=== PATIENT | male | born 1950 | race Caucasian/White ===

== ENCOUNTER 2017-06-01 14:24 | Inpatient (IN) | payer OTHER, MEDICARE ==
[2017-06-01] MEDS ORDERED: PREDNISONE 20 MG TABLET PO ONE (14:50)
[2017-06-01] MEDS ORDERED: IPRATROPIUM/ALBUTEROL 0.5-2.5 MG/3 ML AMPUL NEB ONE (14:50)
[2017-06-01] MEDS ORDERED: ALBUTEROL SULFATE 0.083% NEB 2.5 MG/3 ML AMPUL NEB ONE ×2 (14:51→15:48)
--- NOTE | 2017-06-01 14:51 | ER Document Report ---
ED Respiratory Problem - General Chief Complaint: Breathing Difficulty Stated Complaint: SHORTNESS OF BREATH Time Seen by Provider: 06/01/17 14:33 Mode of Arrival: Medic Information source: Patient TRAVEL OUTSIDE OF THE [place] IN LAST 30 DAYS: No - Related Data Allergies/Adverse Reactions: Sulfa (Sulfonamide Antibiotics) Allergy (Verified 06/01/17 14:30) Past Medical History Renal/ Medical History: Denies: Hx Peritoneal Dialysis Physical Exam - Vital signs Vitals: Temp Pulse Resp BP Pulse Ox 98.6 F 102 H 16 165/79 H 85 L 06/01/17 14:30 06/01/17 14:30 06/01/17 14:30 06/01/17 14:30 06/01/17 14:30 Course - Vital Signs Vital signs: Temp Pulse Resp BP Pulse Ox 98.6 F 102 H 16 165/79 H 85 L 06/01/17 14:30 06/01/17 14:30 06/01/17 14:30 06/01/17 14:30 06/01/17 14:30
--- NOTE | 2017-06-01 14:51 | ER Document Report ---
ED Respiratory Problem - General Chief Complaint: Breathing Difficulty Stated Complaint: SHORTNESS OF BREATH Time Seen by Provider: 06/01/17 14:33 Mode of Arrival: Medic Information source: Patient Notes: 67-year-old smoker male with COPD sent by urgent care because of wheezing and low pulse ox. He started wheezing several days ago. Visiting [place] from [place] for a few more months. TRAVEL OUTSIDE OF THE [place] IN LAST 30 DAYS: No - Related Data Allergies/Adverse Reactions: Sulfa (Sulfonamide Antibiotics) Allergy (Verified 06/01/17 14:30) Past Medical History - General Information source: Patient - Social History Smoking Status: Current Every Day Smoker Lives with: Family Family History: Reviewed & Not Pertinent Pulmonary Medical History: Reports: Hx COPD Other: obese Renal/ Medical History: Denies: Hx Peritoneal Dialysis Other: peripheral vascular disease due to [place]. Surgical Hx: Negative Review of Systems - Review of Systems Constitutional: No symptoms reported EENT: No symptoms reported Cardiovascular: No symptoms reported Respiratory: See HPI Gastrointestinal: No symptoms reported Genitourinary: No symptoms reported Male Genitourinary: No symptoms reported Musculoskeletal: No symptoms reported Skin: No symptoms reported Hematologic/Lymphatic: No symptoms reported Neurological/Psychological: No symptoms reported Physical Exam - Vital signs Vitals: Temp Pulse Resp BP Pulse Ox 98.6 F 102 H 16 165/79 H 85 L 06/01/17 14:30 06/01/17 14:30 06/01/17 14:30 06/01/17 14:30 06/01/17 14:30 Interpretation: Normal, Tachypneic Notes: oxygen 2 lpm nh - General General appearance: Appears well, Alert - HEENT Head: Normocephalic, Atraumatic Eyes: Normal Conjunctiva: Normal Pupils: PERRL Neck: Supple. No: Lymphadenopathy - Respiratory Respiratory status: No respiratory distress Chest status: Nontender Breath sounds: Wheezing - expiratory bilatera Chest palpation: Normal - Cardiovascular Rhythm: Regular Heart sounds: Normal auscultation Murmur: No - Abdominal Inspection: Normal Distension: No distension Bowel sounds: Normal Tenderness: Nontender Organomegaly: No organomegaly - Back Back: Normal, Nontender. No: CVA tenderness - Extremities General upper extremity: Normal inspection, Nontender, Normal color, Normal ROM , Normal temperature General lower extremity: Normal inspection, Nontender, Normal color, Normal ROM , Normal temperature, Normal weight bearing. No: Abdiel's sign - Neurological Neuro grossly intact: Yes Cognition: Normal Orientation: AAOx4 Jak Coma Scale Eye Opening: Spontaneous [place] Coma Scale Verbal: Oriented Jak Coma Scale Motor: Obeys Commands Jak Coma Scale Total: 15 Speech: Normal Motor strength normal: LUE, RUE, LLE, RLE Sensory: Normal - Psychological Associated symptoms: Normal affect, Normal mood - Skin Skin Temperature: Warm Skin Moisture: Dry Skin Color: Normal Skin irregularity: negative: Rash Course - Re-evaluation Re-evalutation: 06/01/17 15:42 increased expiratory wheeze after the alb. 5 mg. pulse ox 93% 06/01/17 16:[address] dong, get CTA 06/01/17 17:44 CTA is negative for pulmonary embolism there is a 5 mm right lung nodule 06/01/17 17:50 Eating dinner, continues to have expiratory wheezing bilaterally. I took the oxygen off to see what his sats do while we ambulate him after dinner. Sinus tachycardia on the EKG. 06/01/17 18:11 dr reyes will admit, pulse ox drops to 79-80% when ambulating without oxygen. CO2 on abg 50. pt willing to be admitted. 06/01/17 18:12 - Vital Signs Vital signs: Temp Pulse Resp BP Pulse Ox 98.6 F 102 H 22 H 148/64 H 93 06/01/17 14:30 06/01/17 14:30 06/01/17 16:38 06/01/17 17:05 06/01/17 17:05 - Laboratory Result Diagrams: 06/01/17 15:04 06/01/17 15:04 Laboratory results interpreted by me: 06/01/17 06/01/17 06/01/17 15:04 15:04 15:04 RDW 15.2 H Seg Neutrophils % 83.3 H Lymphocytes % 7.2 L Absolute Neutrophils 8.6 H Carbonic Acid ABG pCO2 ABG pO2 ABG HCO3 ABG Total CO2 ABG O2 Saturation VBG pCO2 66.5 H* VBG HCO3 34.0 H Carbon Dioxide 32 H Glucose 114 H Alkaline Phosphatase 153 H Urine Protein 06/01/17 06/01/17 16:32 17:30 RDW Seg Neutrophils % Lymphocytes % Absolute Neutrophils Carbonic Acid 1.51 H ABG pCO2 50.1 H ABG pO2 63.7 L ABG HCO3 28.5 H ABG Total CO2 30.0 H ABG O2 Saturation 91.6 L VBG pCO2 VBG HCO3 Carbon Dioxide Glucose Alkaline Phosphatase Urine Protein 100 H Discharge - Discharge Clinical Impression: 5mm pulmonary nodule, COPD exacerbation Condition: Fair Disposition: ADMITTED INPATIENT Admitting Provider: Hospitalist Unit Admitted: Telemetry
[2017-06-01] MEDS ORDERED: PREDNISONE 20 MG TABLET ONE (15:07)
[2017-06-01 15:25] LABS: ABSOLUTE BASOPHILS # (AUTO) 0.1 10^3/uL (0.0-0.2); ABSOLUTE LYMPHOCYTES (AUTO) 0.7 10^3/uL (0.5-4.7); ABSOLUTE MONOCYTES (AUTO) 0.9 10^3/uL (0.1-1.4); ABSOLUTE NEUT (AUTO) 8.6 10^3/uL (1.7-8.2); BASOPHILS % (AUTO) 0.7 % (0-2); EOSINOPHILS % (AUTO) 0.3 % (0-6); HEMATOCRIT 48.3 % (37.9-51.0); HEMOGLOBIN 16.5 g/dL (13.5-17.0); HGB HCT DIFFERENCE 1.2; LYMPHOCYTES % (AUTO) 7.2 % (13-45); MEAN CORPUSCULAR HGB CONC 34.1 g/dL (32.0-36.0); MEAN CORPUSCULAR VOLUME 88 fl (80-97); MONOCYTES % (AUTO) 8.5 % (3-13); RED BLOOD COUNT 5.49 10^6/uL (4.35-5.55); RED CELL DISTRIBUTION WIDTH 15.2 % (11.5-14.0); SEGMENTED NEUTROPHILS % (AUTO) 83.3 % (42-78); WHITE BLOOD COUNT 10.3 10^3/uL (4.0-10.5)
--- NOTE | 2017-06-01 15:26 | RADIOLOGY REPORT (SQ) ---
EXAM DESCRIPTION: CHEST SINGLE VIEW COMPLETED DATE/TIME: 06/01/2017 2:57 pm REASON FOR STUDY: hypoxemia COMPARISON: None. EXAM PARAMETERS: NUMBER OF VIEWS: One view. TECHNIQUE: Single frontal radiographic view of the chest acquired. RADIATION DOSE: NA LIMITATIONS: None. FINDINGS: LUNGS AND PLEURA: No opacities, masses or pneumothorax. No pleural effusion. MEDIASTINUM AND HILAR STRUCTURES: No masses. Contour normal. HEART AND VASCULAR STRUCTURES: Heart normal in size. Normal vasculature. BONES: No acute findings. HARDWARE: None in the chest. OTHER: No other significant finding. IMPRESSION: NO ACUTE RADIOGRAPHIC FINDING IN THE CHEST. TECHNICAL DOCUMENTATION: JOB ID: [id number]
[2017-06-01 15:32] LABS: VENOUS BLOOD BASE EXCESS 5.2 mmol/L; VENOUS BLOOD PH 7.33 (7.30-7.42)
[2017-06-01 15:37] LABS: VENOUS BLOOD PCO2 66.5 mmHg (35-63)
[2017-06-01] MEDS ORDERED: LEVOFLOXACIN 750 MG TABLET PO ONE (15:50)
[2017-06-01 15:55] LABS: ALANINE AMINOTRANSFERASE 40 U/L (21-72); ALBUMIN 4.4 g/dL (3.5-5.0); ALKALINE PHOSPHATASE 153 U/L (38-126); ANION GAP 11 (5-19); ASPARTATE AMINO TRANSFERASE 29 U/L (17-59); BILIRUBIN,DIRECT 0.4 mg/dL (0.0-0.4); BILIRUBIN,TOTAL 0.6 mg/dL (0.2-1.3); BLOOD UREA NITROGEN 12 mg/dL (7-20); CALCIUM 9.4 mg/dL (8.4-10.2); CARBON DIOXIDE 32 mmol/L (22-30); CHLORIDE 99 mmol/L (98-107); CREATINE KINASE 137 U/L (55-170); CREATININE RESULT 0.74 mg/dL (0.52-1.25); GLUCOSE 114 mg/dL (75-110); POTASSIUM 4.3 mmol/L (3.6-5.0); SODIUM 141.9 mmol/L (137-145)
[2017-06-01] MEDS: MAGNESIUM SULFATE/D5W 1 GM/100 ML RTUPB IV SCH ×2 (16:04→16:25)
[2017-06-01 16:06] LABS: CREATINE KINASE MB 2.72 ng/mL (<4.55)
[2017-06-01 16:07] LABS: TROPONIN I < 0.012 ng/mL
[2017-06-01 17:06] LABS: APPEARANCE,URINE SLIGHTLY-CLOUDY; BILIRUBIN,URINE NEGATIVE (NEGATIVE); GLUCOSE, URINE NEGATIVE (NEGATIVE); KETONES,URINE NEGATIVE (NEGATIVE); LEUKOCYTE ESTERASE,URINE NEGATIVE (NEGATIVE); NITRITE,URINE NEGATIVE (NEGATIVE); PROTEIN,URINE 100 mg/dL (NEGATIVE); URINE SPECIFIC GRAVITY 1.019; UROBILINOGEN,URINE NEGATIVE mg/dL (<2.0)
--- NOTE | 2017-06-01 17:35 | RADIOLOGY REPORT (SQ) ---
EXAM DESCRIPTION: CTA CHEST COMPLETED DATE/TIME: 06/01/2017 5:10 pm REASON FOR STUDY: sob, wheeze, if the creatitine is OK COMPARISON: Chest x-ray dated 06/01/2017 TECHNIQUE: CT scan of the chest performed using helical scanning technique with dynamic intravenous contrast injection. Images reviewed with lung, soft tissue and bone windows. Reconstructed coronal and sagittal MPR images reviewed. Additional 3 dimensional post-processing performed to develop Maximal Intensity Projection images (NH P). All images stored on PACS. All CT scanners at this facility use dose modulation, iterative reconstruction, and/or weight based d osing when appropriate to reduce radiation dose to as low as reasonably achievable (ALARA). [facility]: Dose Right [facility]: CareDose [facility]: Dose Right [facility]: Teradose 4D [facility]: eMagin CONTRAST TYPE AND DOSE: contrast/concentration: Isovue 370.00 mg/ml; Total Contrast Delivered: 75.0 ml; Total Saline Delivered: 50.0 ml Contrast bolus optimized for the pulmonary arteries. Not diagnostic for the aorta. RENAL FUNCTION: Creatinine 0.7 RADIATION DOSE: Up-to-date CT equipment and radiation dose reduction techniques were employed. CTDIv ol: 7.5 - 15.6 mGy. DLP: 683 mGy-cm. . LIMITATIONS: None. FINDINGS: LUNGS AND PLEURA: No masses, infiltrates, pneumothorax. No pleural effusions, calcificati ons. A 5 mm in diameter pulmonary nodule is identified in the right mid lung field best seen on imag e number 28 with followup recommendations as noted below. AORTA AND GREAT VESSELS: No aneurysm. Contrast bolus not optimized for the aorta. HEART: No pericardial effusion. No significant coronary artery calcifications. PULMONARY ARTERIES: No emboli visualized in the main pulmonary arteries or the segmental branches. HILAR AND MEDIASTINAL STRUCTURES: No identified masses or abnormal nodes. HARDWARE: None in the chest. UPPER ABDOMEN: No significant findings. Limited exam. THYROID AND OTHER SOFT TISSUES: No masses. No adenopathy. BONES: No acute or significant finding. 3D MIPS: Confirm above findings. OTHER: No other significant finding. IMPRESSION: No evidence for pulmonary embolic disease. No acute consolidations or pleural effusions are identified. 5 mm pulmonary nodule on the right with followup recommendations as noted below. O ther findings as noted above COMMENT: <6mm single solid nodule: LOW RISK: no routine followup. HIGH RISK: optional CT 12 mo. Quality ID # [id number]: Final reports with documentation of one or more dose reduction techniques (e.g., Au tomated exposure control, adjustment of the mA and/or kV according to patient size, use of iterative reconstruction technique) TECHNICAL DOCUMENTATION: JOB ID: [id number] [employer]- All Rights Reserved
[2017-06-01 17:47] LABS: ARTERIAL BLOOD BASE EXCESS 2.2 mmol/L; ARTERIAL BLOOD O2 SATURATION 91.6 % (94-98)
[2017-06-01] MEDS ORDERED: LEVALBUTEROL HCL NEB 0.63 MG/3 ML AMPUL NEB ONE (18:06)
[2017-06-01] MEDS ORDERED: ALBUTEROL SULFATE 0.083% NEB 2.5 MG/3 ML AMPUL NEB PRN (18:35)
[2017-06-01] MEDS ORDERED: ONDANSETRON HCL INJ/PF 4 MG/2 ML SDV IV PRN (18:35)
[2017-06-01] MEDS ORDERED: ACETAMINOPHEN 325 MG TABLET PO PRN (18:35)
--- NOTE | 2017-06-01 18:53 | PDOC H&P ---
History of Present Illness Admission Date/PCP: 06/01/17 18:32 Patient complains of: Shortness of breath History of Present Illness: JT CHATMAN is a 67 year old male, with history of COPD started to develop sinus congestion and sore throat postnasal drip yesterday subsequently followed by low-grade fever coughing with yellow phlegm shortness of breath and wheezing. Denies any chest pain. No PND orthopnea. Patient was taking his medications with partial relief of symptoms. The symptoms get worse chest congestion got worse therefore he presented to the hospital. He was given several doses of nebulizers as well as magnesium and steroids with some relief of symptoms. He was then referred for admission. On ambulation the patient desaturates according to the emergency room physician. There is chronic lower extremity edema but nothing increasing. Past Medical History Past Medical History: Medication reconciliation pending verification from the patient's pharmacist. Cardiac Medical History: Reports: Hypertension Pulmonary Medical History: Reports: Chronic Obstructive Pulmonary Disease (COPD) , Other - Pulmonary nodule Psychiatric Medical History: Reports: Post Traumatic Stress Disorder Past Surgical History Past Surgical History: Reports: None Social History Information Source: Patient Lives with: Family Smoking Status: Never Smoker Frequency of Alcohol Use: Rare Hx Recreational Drug Use: No Drugs: None Family History Family History: None, Reviewed & Not Pertinent Parental Family History Reviewed: Yes Children Family History Reviewed: Yes Sibling(s) Family History Reviewed.: Yes Medication/Allergy Allergies/Adverse Reactions: Sulfa (Sulfonamide Antibiotics) Allergy (Verified 06/01/17 14:30) Review of Systems Constitutional: PRESENT: fever(s). ABSENT: chills, headache(s), night sweats, weight gain, weight loss Eyes: ABSENT: visual disturbances Ears: ABSENT: hearing changes Nose, Mouth, and Throat: PRESENT: sore throat. ABSENT: mouth pain, vertigo Cardiovascular: PRESENT: edema - Chronic. ABSENT: chest pain, dyspnea on exertion, orthropnea, palpitations Respiratory: PRESENT: cough, dyspnea, sputum - Yellowish. ABSENT: hemoptysis Gastrointestinal: ABSENT: abdominal pain, bloating, constipation, diarrhea, hematemesis, hematochezia, melena, nausea, vomiting Genitourinary: ABSENT: dysuria, hematuria Musculoskeletal: ABSENT: joint swelling Integumentary: ABSENT: rash, wounds Neurological: ABSENT: abnormal gait, abnormal speech, confusion, dizziness, focal weakness, syncope Psychiatric: ABSENT: anxiety, depression, homidical ideation, suicidal ideation Endocrine: ABSENT: cold intolerance, heat intolerance, polydipsia, polyuria Hematologic/Lymphatic: ABSENT: easy bleeding, easy bruising Physical Exam Vital Signs: Temp Pulse Resp BP Pulse Ox 98.6 F 102 H 22 H 148/64 H 93 06/01/17 14:30 06/01/17 14:30 06/01/17 16:38 06/01/17 17:05 06/01/17 17:05 General appearance: PRESENT: no acute distress, morbidly obese Head exam: PRESENT: atraumatic, normocephalic Eye exam: PRESENT: conjunctiva pink, EOMI, PERRLA. ABSENT: scleral icterus Ear exam: PRESENT: normal external ear exam. ABSENT: drainage Mouth exam: PRESENT: moist, neck supple, tongue midline Throat exam: ABSENT: post pharyngeal erythema, tonsillar erythema Neck exam: ABSENT: carotid bruit, JVD, lymphadenopathy, thyromegaly Respiratory exam: PRESENT: rhonchi - Scattered bilateral, wheezes - Scattered bilateral mild. ABSENT: rales Cardiovascular exam: PRESENT: RRR, +S1, +S2. ABSENT: diastolic murmur, rubs, systolic murmur Pulses: PRESENT: normal dorsalis pedis pul Vascular exam: PRESENT: normal capillary refill GI/Abdominal exam: PRESENT: normal bowel sounds, soft. ABSENT: distended - Obese, guarding, mass, organolmegaly, rebound, tenderness Rectal exam: PRESENT: deferred Extremities exam: PRESENT: full ROM, +1 edema. ABSENT: calf tenderness, clubbing Neurological exam: PRESENT: alert, awake, oriented to person, oriented to place , oriented to time, oriented to situation Psychiatric exam: PRESENT: appropriate affect, normal mood. ABSENT: homicidal ideation, suicidal ideation Skin exam: PRESENT: dry, intact, warm. ABSENT: cyanosis, rash Results Impressions: Chest X-Ray 06/01/17 14:33 IMPRESSION: NO ACUTE RADIOGRAPHIC FINDING IN THE CHEST. Chest/Abdomen CTA 06/01/17 15:52 IMPRESSION: No evidence for pulmonary embolic disease. No acute consolidations or pleural effusions are identified. 5 mm pulmonary nodule on the right with followup recommendations as noted below. Other findings as noted above Assessment & Plan - Diagnosis (1) COPD exacerbation Is this a current diagnosis for this admission?: Yes (2) Abnormal urinalysis Is this a current diagnosis for this admission?: Yes (3) Pulmonary nodule Is this a current diagnosis for this admission?: Yes (4) Essential hypertension Is this a current diagnosis for this admission?: Yes (5) PTSD (post-traumatic stress disorder) Is this a current diagnosis for this admission?: Yes - Time Time Spent: 50 to 70 Minutes - Inpatient Certification Based on my medical assessment, after consideration of the patient's comorbidities, presenting symptoms, or acuity I expect that the services needed warrant INPATIENT care.: Yes Medical Necessity: Need Close Monitoring Due to Risk of Patient Decompensation, Need For Continuous Telemetry Monitoring, Need for Nebulizer Therapy and Monitoring of Response, Risk of Complication if Not Cared For in Hospital Post Hospital Care: D/C English Professor Documentation - Plan Summary Plan Summary: The patient will be admitted to telemetry. We will start the patient on intravenous steroids as well as [id number] nebulizers. His urine was abnormal we will therefore culture it and begin the patient on antibiotics. DVT prophylaxis with Lovenox will be placed. Supplemental oxygen will be given. We will obtain his medications from his pharmacist. Patient reports he takes felodipine Zoloft Seroquel aspirin Singulair and ProAir air. I will put patient on Norvasc for now as well as low doses of Seroquel until we can much his home medication. He stated he is in 100 mg of Zoloft we will therefore continue. Patient reports that he has long history of pulmonary nodule and his primary care physician in [facility] takes care of it. Further testing depends on the initial evaluation and response to treatment as outlined above.
[2017-06-01] MEDS ORDERED: ENOXAPARIN SODIUM INJ 40 MG/0.4 ML DISP.SYRIN SUBCUT ONE (20:00)
[2017-06-01] MEDS: IPRATROPIUM/ALBUTEROL 0.5-2.5 MG/3 ML AMPUL NEB SCH ×2 (20:55→23:47)
--- NOTE | 2017-06-01 21:02 | EKG REPORT ---
SEVERITY:- ABNORMAL ECG - SINUS TACHYCARDIA PROBABLE INFERIOR INFARCT, OLD ANTERIOR INFARCT, AGE INDETERMINATE BORDERLINE PROLONGED QT INTERVAL : Confirmed by: Eulalia Orourke MD 01-Jun-2017 21:01:40
[2017-06-01] MEDS: NORMAL SALINE 1000 ML 1,000 ML IV PRN (22:04)
[2017-06-01] MEDS: QUETIAPINE FUMARATE 100 MG TABLET PO SCH (22:04)
[2017-06-01] MEDS: METHYLPREDNISOLONE INJ 125 MG/2 ML SDV IV SCH (22:04)
[2017-06-02] MEDS: IPRATROPIUM/ALBUTEROL 0.5-2.5 MG/3 ML AMPUL NEB SCH ×6 (03:45→23:51)
[2017-06-02 06:03] LABS: ANION GAP 10 (5-19); BLOOD UREA NITROGEN 16 mg/dL (7-20); CALCIUM 9.2 mg/dL (8.4-10.2); CARBON DIOXIDE 28 mmol/L (22-30); CHLORIDE 102 mmol/L (98-107); CREATININE RESULT 0.68 mg/dL (0.52-1.25); GLUCOSE 167 mg/dL (75-110); POTASSIUM 4.5 mmol/L (3.6-5.0); SODIUM 139.5 mmol/L (137-145)
[2017-06-02] MEDS: METHYLPREDNISOLONE INJ 125 MG/2 ML SDV IV SCH ×3 (06:09→21:24)
[2017-06-02] MEDS: LANSOPRAZOLE 30 MG TAB.RAP.DR PO SCH ×2 (06:09→17:08)
[2017-06-02] MEDS: LEVOFLOXACIN 750 MG TABLET PO SCH (09:41)
[2017-06-02] MEDS: DOCUSATE SODIUM 100 MG CAPSULE PO SCH ×2 (09:41→17:09)
[2017-06-02] MEDS: SERTRALINE HCL 50 MG TABLET PO SCH (09:42)
[2017-06-02] MEDS: ASPIRIN 81 MG TABLET, CHEWABLE PO SCH (09:42)
[2017-06-02] MEDS: ENOXAPARIN SODIUM INJ 40 MG/0.4 ML DISP.SYRIN SUBCUT SCH (09:44)
[2017-06-02] MEDS: AMLODIPINE BESYLATE 5 MG TABLET PO SCH (14:49)
--- NOTE | 2017-06-02 15:24 | PDOC PROGRESS REPORT ---
Subjective Progress Note for:: 06/02/17 Subjective:: Patient reports that his breathing is doing better today. Physical Exam Vital Signs: Temp Pulse Resp BP Pulse Ox 97.3 F 79 24 H 163/86 H 93 06/02/17 11:47 06/02/17 14:00 06/02/17 11:56 06/02/17 11:47 06/02/17 11:56 Pulse Oximeter Continuous Start: 06/01/17 21: 02 Freq: RTQ4 Status: Active Document 06/02/17 11:56 TPO (Rec: 06/02/17 12:06 TPO [email or web address]) Pulse Oximetry Assessment Oxygen Saturation (92-100) 93 Oxygen Flow Rate (L/min) 2 Oxygen Delivery Method Nasal Cannula Fraction of Inspired Oxygen (FIO2) 28 Equipment Usage Equipment in Use Continuous SpO2 Machine # [id number] Intake & Output 06/01/17 06/02/17 06/03/17 06:59 06:59 06:59 Intake Total 1760 360 Output Total 300 Balance 1460 360 Weight 118.7 kg General appearance: PRESENT: no acute distress Eye exam: PRESENT: conjunctiva pink. ABSENT: scleral icterus Mouth exam: PRESENT: moist, tongue midline Neck exam: ABSENT: JVD Respiratory exam: PRESENT: wheezes. ABSENT: rales, rhonchi Cardiovascular exam: PRESENT: RRR. ABSENT: diastolic murmur, rubs, systolic murmur GI/Abdominal exam: PRESENT: normal bowel sounds, soft. ABSENT: distended, guarding, mass, organolmegaly, rebound, tenderness Extremities exam: ABSENT: calf tenderness, clubbing, pedal edema Neurological exam: PRESENT: alert, awake, oriented to person, oriented to place , oriented to time, oriented to situation, CN II-XII grossly intact. ABSENT: motor sensory deficit Psychiatric exam: PRESENT: appropriate affect Skin exam: PRESENT: dry, intact, warm. ABSENT: cyanosis, rash Results Laboratory Results: 06/02/17 05:01 06/02/17 05:01 Sodium 139.5 Potassium 4.5 Chloride 102 Carbon Dioxide 28 Anion Gap 10 BUN 16 Creatinine 0.68 Est GFR ( Amer) > 60 Est GFR (Non-Af Amer) > 60 Glucose 167 H Calcium 9.2 Impressions: Chest X-Ray 06/01/17 14:33 IMPRESSION: NO ACUTE RADIOGRAPHIC FINDING IN THE CHEST. Chest/Abdomen CTA 06/01/17 15:52 IMPRESSION: No evidence for pulmonary embolic disease. No acute consolidations or pleural effusions are identified. 5 mm pulmonary nodule on the right with followup recommendations as noted below. Other findings as noted above Assessment & Plan - Diagnosis (1) COPD exacerbation Is this a current diagnosis for this admission?: Yes Plan: Patient is improved with IV steroids, nebulizers, antibiotics. (2) Abnormal urinalysis Is this a current diagnosis for this admission?: Yes Plan: Continue with Levaquin. (3) Essential hypertension Is this a current diagnosis for this admission?: Yes (4) PTSD (post-traumatic stress disorder) Is this a current diagnosis for this admission?: Yes (5) Pulmonary nodule Is this a current diagnosis for this admission?: Yes Plan: This has been long-standing and the patient reports is been followed by his primary care doctor. - Time Time Spent with patient: 25-34 minutes - Inpatient Certification Medical Necessity: Need Close Monitoring Due to Risk of Patient Decompensation, Need for IV Antibiotics
[2017-06-02] MEDS: QUETIAPINE FUMARATE 100 MG TABLET PO SCH (21:24)
[2017-06-03] MEDS: IPRATROPIUM/ALBUTEROL 0.5-2.5 MG/3 ML AMPUL NEB SCH ×5 (04:07→19:55)
[2017-06-03 05:10] LABS: HEMATOCRIT 46.9 % (37.9-51.0); HEMOGLOBIN 15.6 g/dL (13.5-17.0); HGB HCT DIFFERENCE -0.1; MEAN CORPUSCULAR HEMOGLOBIN 29.6 pg (27.0-33.4); MEAN CORPUSCULAR HGB CONC 33.3 g/dL (32.0-36.0); MEAN CORPUSCULAR VOLUME 89 fl (80-97); RED BLOOD COUNT 5.28 10^6/uL (4.35-5.55); RED CELL DISTRIBUTION WIDTH 15.8 % (11.5-14.0)
[2017-06-03 05:16] LABS: ANION GAP 7 (5-19); BLOOD UREA NITROGEN 18 mg/dL (7-20); CARBON DIOXIDE 29 mmol/L (22-30); CHLORIDE 106 mmol/L (98-107); CREATININE RESULT 0.67 mg/dL (0.52-1.25); GLUCOSE 156 mg/dL (75-110); SODIUM 141.9 mmol/L (137-145)
[2017-06-03 05:58] LABS: ANISOCYTOSIS SLIGHT; BAND NEUTROPHILS % (MANUAL) 2 % (3-5); BASOPHILS % (MANUAL) 0 % (0-2); EOSINOPHILS % (MANUAL) 0 % (0-6); LYMPHOCYTES % (MANUAL) 10 % (13-45); OVALOCYTES SLIGHT; POIKILOCYTOSIS SLIGHT; TOTAL CELLS COUNTED 100; TOXIC GRANULATION 1+
[2017-06-03] MEDS: LANSOPRAZOLE 30 MG TAB.RAP.DR PO SCH ×2 (05:58→17:43)
[2017-06-03] MEDS: METHYLPREDNISOLONE INJ 125 MG/2 ML SDV IV SCH ×3 (05:58→21:22)
[2017-06-03] MEDS: NORMAL SALINE 1000 ML 1,000 ML IV PRN ×2 (05:58→17:47)
[2017-06-03] MEDS: AMLODIPINE BESYLATE 5 MG TABLET PO SCH (09:02)
[2017-06-03] MEDS: DOCUSATE SODIUM 100 MG CAPSULE PO SCH ×2 (09:07→17:43)
[2017-06-03] MEDS: SERTRALINE HCL 50 MG TABLET PO SCH (09:07)
[2017-06-03] MEDS: ASPIRIN 81 MG TABLET, CHEWABLE PO SCH (09:07)
[2017-06-03] MEDS: LEVOFLOXACIN 750 MG TABLET PO SCH (09:09)
[2017-06-03] MEDS: ENOXAPARIN SODIUM INJ 40 MG/0.4 ML DISP.SYRIN SUBCUT SCH (09:09)
--- NOTE | 2017-06-03 11:13 | PDOC PROGRESS REPORT ---
Subjective Progress Note for:: 06/03/17 Subjective:: Denies any complaints Physical Exam Vital Signs: Temp Pulse Resp BP Pulse Ox 97.4 F 74 20 146/76 H 95 06/03/17 07:34 06/03/17 08:12 06/03/17 08:12 06/03/17 07:34 06/03/17 08:12 Pulse Oximeter Continuous Start: 06/01/17 21: 02 Freq: RTQ4 Status: Active Document 06/03/17 08:12 TPO (Rec: 06/03/17 08:33 TPO [email or web address]) Pulse Oximetry Assessment Oxygen Saturation (92-100) 95 Oxygen Delivery Method Room Air Fraction of Inspired Oxygen (FIO2) 21 Equipment Usage Equipment in Use Continuous SpO2 Machine # [id number] Intake & Output 06/02/17 06/03/17 06/04/17 06:59 06:59 06:59 Intake Total 1760 2688 Output Total 300 Balance 1460 2688 Weight 118.7 kg 118.7 kg General appearance: PRESENT: no acute distress Eye exam: PRESENT: conjunctiva pink. ABSENT: scleral icterus Mouth exam: PRESENT: moist, tongue midline Neck exam: ABSENT: JVD Respiratory exam: PRESENT: wheezes. ABSENT: rales, rhonchi Cardiovascular exam: PRESENT: RRR. ABSENT: diastolic murmur, rubs, systolic murmur GI/Abdominal exam: PRESENT: normal bowel sounds, soft. ABSENT: distended, guarding, mass, organolmegaly, rebound, tenderness Extremities exam: ABSENT: calf tenderness, clubbing, pedal edema Psychiatric exam: PRESENT: appropriate affect Skin exam: PRESENT: dry, intact, warm. ABSENT: cyanosis, rash Results Laboratory Results: 06/03/17 04:48 06/03/17 04:48 06/03/17 06/03/17 04:48 04:48 WBC 21.0 H D RBC 5.28 Hgb 15.6 Hct 46.9 MCV 89 MCH 29.6 MCHC 33.3 RDW 15.8 H Plt Count 188 Seg Neutrophils % Not Reportable Lymphocytes % Not Reportable Monocytes % Not Reportable Eosinophils % Not Reportable Basophils % Not Reportable Absolute Neutrophils Not Reportable Absolute Lymphocytes Not Reportable Absolute Monocytes Not Reportable Absolute Eosinophils Not Reportable Absolute Basophils Not Reportable Sodium 141.9 Potassium 5.0 Chloride 106 Carbon Dioxide 29 Anion Gap 7 BUN 18 Creatinine 0.67 Est GFR ( Amer) > 60 Est GFR (Non-Af Amer) > 60 Glucose 156 H Calcium 9.0 Impressions: Chest X-Ray 06/01/17 14:33 IMPRESSION: NO ACUTE RADIOGRAPHIC FINDING IN THE CHEST. Chest/Abdomen CTA 06/01/17 15:52 IMPRESSION: No evidence for pulmonary embolic disease. No acute consolidations or pleural effusions are identified. 5 mm pulmonary nodule on the right with followup recommendations as noted below. Other findings as noted above Assessment & Plan - Diagnosis (1) COPD exacerbation Is this a current diagnosis for this admission?: Yes Plan: Patient is improved with IV steroids, nebulizers, antibiotics. (2) Abnormal urinalysis Is this a current diagnosis for this admission?: Yes Plan: Continue with Levaquin. (3) Essential hypertension Is this a current diagnosis for this admission?: Yes Plan: Patient normally takes felodipine at home. We do not carry that here. He reports he is unable to take amlodipine (4) PTSD (post-traumatic stress disorder) Is this a current diagnosis for this admission?: Yes (5) Pulmonary nodule Is this a current diagnosis for this admission?: Yes Plan: This has been long-standing and the patient reports is been followed by his primary care doctor. - Time Time Spent with patient: 25-34 minutes - Inpatient Certification Medical Necessity: Need Close Monitoring Due to Risk of Patient Decompensation
[2017-06-03] MEDS: QUETIAPINE FUMARATE 100 MG TABLET PO SCH (21:22)
[2017-06-04] MEDS: IPRATROPIUM/ALBUTEROL 0.5-2.5 MG/3 ML AMPUL NEB SCH ×6 (00:05→19:56)
[2017-06-04 05:07] LABS: MEAN CORPUSCULAR VOLUME 89 fl (80-97)
[2017-06-04 05:15] LABS: ANION GAP 9 (5-19); BLOOD UREA NITROGEN 19 mg/dL (7-20); CALCIUM 8.9 mg/dL (8.4-10.2); CARBON DIOXIDE 28 mmol/L (22-30); CHLORIDE 105 mmol/L (98-107); CREATININE RESULT 0.69 mg/dL (0.52-1.25); GLUCOSE 144 mg/dL (75-110); POTASSIUM 4.5 mmol/L (3.6-5.0); SODIUM 142.2 mmol/L (137-145)
[2017-06-04 05:20] LABS: HEMATOCRIT 45.4 % (37.9-51.0); HEMOGLOBIN 15.1 g/dL (13.5-17.0); HGB HCT DIFFERENCE -0.1; MEAN CORPUSCULAR HEMOGLOBIN 29.6 pg (27.0-33.4); MEAN CORPUSCULAR HGB CONC 33.2 g/dL (32.0-36.0); RED BLOOD COUNT 5.09 10^6/uL (4.35-5.55); RED CELL DISTRIBUTION WIDTH 15.9 % (11.5-14.0); WHITE BLOOD COUNT 20.7 10^3/uL (4.0-10.5)
[2017-06-04 05:26] LABS: ANISOCYTOSIS 1+; BASOPHILS % (MANUAL) 0 % (0-2); EOSINOPHILS % (MANUAL) 0 % (0-6); LYMPHOCYTES % (MANUAL) 2 % (13-45); TOTAL CELLS COUNTED 100; TOXIC GRANULATION 1+; TOXIC VACUOLATION PRESENT
[2017-06-04] MEDS: METHYLPREDNISOLONE INJ 125 MG/2 ML SDV IV SCH ×3 (05:44→21:37)
[2017-06-04] MEDS: LANSOPRAZOLE 30 MG TAB.RAP.DR PO SCH ×2 (05:44→18:26)
[2017-06-04] MEDS: NORMAL SALINE 1000 ML 1,000 ML IV PRN ×2 (05:45→21:37)
[2017-06-04] MEDS: AMLODIPINE BESYLATE 5 MG TABLET PO SCH (09:21)
[2017-06-04] MEDS: DOCUSATE SODIUM 100 MG CAPSULE PO SCH ×2 (09:27→18:25)
[2017-06-04] MEDS: LEVOFLOXACIN 750 MG TABLET PO SCH (09:27)
[2017-06-04] MEDS: SERTRALINE HCL 50 MG TABLET PO SCH (09:27)
[2017-06-04] MEDS: ASPIRIN 81 MG TABLET, CHEWABLE PO SCH (09:27)
[2017-06-04] MEDS: ENOXAPARIN SODIUM INJ 40 MG/0.4 ML DISP.SYRIN SUBCUT SCH (09:27)
[2017-06-04] MEDS ORDERED: ONDANSETRON HCL INJ/PF 4 MG/2 ML SDV IV PRN (09:30)
[2017-06-04] MEDS ORDERED: FELODIPINE 10 MG PO SCH (10:00)
--- NOTE | 2017-06-04 11:35 | PDOC PROGRESS REPORT ---
Subjective Progress Note for:: 06/04/17 Subjective:: Denies any complaints Physical Exam Vital Signs: Temp Pulse Resp BP Pulse Ox 97.5 F 88 17 192/106 H 94 06/04/17 08:02 06/04/17 08:02 06/04/17 08:02 06/04/17 08:02 06/04/17 08:02 Pulse Oximeter Continuous Start: 06/01/17 21: 02 Freq: RTQ4 Status: Complete Document 06/03/17 19:56 EAL (Rec: 06/03/17 20:53 EAL [email or web address]) Pulse Oximetry Assessment Oxygen Saturation (92-100) 92 Oxygen Flow Rate (L/min) 1 Oxygen Delivery Method Nasal Cannula Fraction of Inspired Oxygen (FIO2) 24 Equipment Usage Equipment Discontinued Continuous SpO2 Machine # [id number] Intake & Output 06/03/17 06/04/17 06/05/17 06:59 06:59 06:59 Intake Total 2688 3217 Balance 2688 3217 Weight 118.7 kg 125.3 kg General appearance: PRESENT: no acute distress Eye exam: PRESENT: conjunctiva pink. ABSENT: scleral icterus Mouth exam: PRESENT: moist, tongue midline Neck exam: ABSENT: JVD Respiratory exam: PRESENT: wheezes. ABSENT: rales, rhonchi Cardiovascular exam: PRESENT: RRR. ABSENT: diastolic murmur, rubs, systolic murmur GI/Abdominal exam: PRESENT: normal bowel sounds, soft. ABSENT: distended, guarding, mass, organolmegaly, rebound, tenderness Extremities exam: ABSENT: calf tenderness, clubbing, pedal edema Neurological exam: PRESENT: alert, awake, oriented to person, oriented to place , oriented to time, oriented to situation, CN II-XII grossly intact. ABSENT: motor sensory deficit Psychiatric exam: PRESENT: appropriate affect Skin exam: PRESENT: dry, intact, warm. ABSENT: cyanosis, rash Results Laboratory Results: 06/04/17 04:10 06/04/17 04:10 06/04/17 06/04/17 04:10 04:10 WBC 20.7 H RBC 5.09 Hgb 15.1 Hct 45.4 MCV 89 MCH 29.6 MCHC 33.2 RDW 15.9 H Plt Count 176 Seg Neutrophils % Not Reportable Lymphocytes % Not Reportable Monocytes % Not Reportable Eosinophils % Not Reportable Basophils % Not Reportable Absolute Neutrophils Not Reportable Absolute Lymphocytes Not Reportable Absolute Monocytes Not Reportable Absolute Eosinophils Not Reportable Absolute Basophils Not Reportable Sodium 142.2 Potassium 4.5 Chloride 105 Carbon Dioxide 28 Anion Gap 9 BUN 19 Creatinine 0.69 Est GFR ( Amer) > 60 Est GFR (Non-Af Amer) > 60 Glucose 144 H Calcium 8.9 Impressions: Chest X-Ray 06/01/17 14:33 IMPRESSION: NO ACUTE RADIOGRAPHIC FINDING IN THE CHEST. Chest/Abdomen CTA 06/01/17 15:52 IMPRESSION: No evidence for pulmonary embolic disease. No acute consolidations or pleural effusions are identified. 5 mm pulmonary nodule on the right with followup recommendations as noted below. Other findings as noted above Assessment & Plan - Diagnosis (1) COPD exacerbation Is this a current diagnosis for this admission?: Yes Plan: Patient is improved with IV steroids, nebulizers, antibiotics. I was going to discharge this patient when I first saw him this morning. He did not have any wheezing on my first exam. I went back at the request of the nursing staff several hours after my initial exam and he had expiratory wheezes in all lung trinh. Because of this we will hold off on discharge today and possibly discharge tomorrow if he has resolution of his wheezing. (2) Abnormal urinalysis Is this a current diagnosis for this admission?: Yes Plan: Continue with Levaquin. Cultures have been negative. (3) Essential hypertension Is this a current diagnosis for this admission?: Yes Plan: Patient normally takes felodipine at home. We do not carry that here. He reports he is unable to take amlodipine (4) PTSD (post-traumatic stress disorder) Is this a current diagnosis for this admission?: Yes (5) Pulmonary nodule Is this a current diagnosis for this admission?: Yes Plan: This has been long-standing and the patient reports is been followed by his primary care doctor. - Time Time Spent with patient: 25-34 minutes - Inpatient Certification Medical Necessity: Need Close Monitoring Due to Risk of Patient Decompensation
[2017-06-04] MEDS: QUETIAPINE FUMARATE 100 MG TABLET PO SCH (21:37)
[2017-06-04] MEDS: HYDRALAZINE HCL INJ/PF 20 MG/1 ML SDV IV PRN (23:04)
[2017-06-05] MEDS: IPRATROPIUM/ALBUTEROL 0.5-2.5 MG/3 ML AMPUL NEB SCH ×7 (00:18→23:52)
[2017-06-05] MEDS: LANSOPRAZOLE 30 MG TAB.RAP.DR PO SCH ×2 (05:04→17:06)
[2017-06-05] MEDS: METHYLPREDNISOLONE INJ 125 MG/2 ML SDV IV SCH ×3 (05:04→21:08)
[2017-06-05] MEDS: HYDRALAZINE HCL INJ/PF 20 MG/1 ML SDV IV PRN (05:04)
[2017-06-05 06:44] LABS: ANION GAP 8 (5-19); BLOOD UREA NITROGEN 17 mg/dL (7-20); CALCIUM 8.9 mg/dL (8.4-10.2); CARBON DIOXIDE 32 mmol/L (22-30); CHLORIDE 101 mmol/L (98-107); CREATININE RESULT 0.69 mg/dL (0.52-1.25); GLUCOSE 150 mg/dL (75-110); POTASSIUM 4.4 mmol/L (3.6-5.0)
[2017-06-05 06:54] LABS: HEMATOCRIT 45.5 % (37.9-51.0); HEMOGLOBIN 15.4 g/dL (13.5-17.0); HGB HCT DIFFERENCE 0.7; MEAN CORPUSCULAR HEMOGLOBIN 29.8 pg (27.0-33.4); MEAN CORPUSCULAR HGB CONC 33.9 g/dL (32.0-36.0); MEAN CORPUSCULAR VOLUME 88 fl (80-97); RED BLOOD COUNT 5.17 10^6/uL (4.35-5.55); RED CELL DISTRIBUTION WIDTH 15.5 % (11.5-14.0); WHITE BLOOD COUNT 14.6 10^3/uL (4.0-10.5)
[2017-06-05 07:17] LABS: ANISOCYTOSIS SLIGHT; BASOPHILS % (MANUAL) 0 % (0-2); EOSINOPHILS % (MANUAL) 0 % (0-6); LYMPHOCYTES % (MANUAL) 10 % (13-45); TOTAL CELLS COUNTED 100
[2017-06-05] MEDS ORDERED: AMLODIPINE BESYLATE 5 MG TABLET PO SCH (10:00)
[2017-06-05] MEDS: ASPIRIN 81 MG TABLET, CHEWABLE PO SCH (11:35)
[2017-06-05] MEDS: LEVOFLOXACIN 750 MG TABLET PO SCH (11:36)
[2017-06-05] MEDS: DOCUSATE SODIUM 100 MG CAPSULE PO SCH ×2 (11:37→17:06)
[2017-06-05] MEDS: SERTRALINE HCL 50 MG TABLET PO SCH (11:37)
[2017-06-05] MEDS: ENOXAPARIN SODIUM INJ 40 MG/0.4 ML DISP.SYRIN SUBCUT SCH (11:40)
[2017-06-05] MEDS: AMLODIPINE BESYLATE 5 MG TABLET PO SCH (11:40)
--- NOTE | 2017-06-05 17:05 | PDOC PROGRESS REPORT ---
Subjective Progress Note for:: 06/05/17 Subjective:: Denies any complaints. Still having some wheezing on exam. Physical Exam Vital Signs: Temp Pulse Resp BP Pulse Ox 97.6 F 71 20 136/96 H 91 L 06/05/17 11:52 06/05/17 16:09 06/05/17 16:09 06/05/17 11:52 06/05/17 16:09 Pulse Oximeter Continuous Start: 06/01/17 21: 02 Freq: RTQ4 Status: Complete Document 06/03/17 19:56 EAL (Rec: 06/03/17 20:53 EAL [email or web address]) Pulse Oximetry Assessment Oxygen Saturation (92-100) 92 Oxygen Flow Rate (L/min) 1 Oxygen Delivery Method Nasal Cannula Fraction of Inspired Oxygen (FIO2) 24 Equipment Usage Equipment Discontinued Continuous SpO2 Machine # [id number] Intake & Output 06/04/17 06/05/17 06/06/17 06:59 06:59 06:59 Intake Total 3217 1880 4 Balance 3217 1880 4 Weight 125.3 kg 128.5 kg General appearance: PRESENT: no acute distress Eye exam: PRESENT: conjunctiva pink. ABSENT: scleral icterus Mouth exam: PRESENT: moist, tongue midline Neck exam: ABSENT: JVD Respiratory exam: PRESENT: wheezes. ABSENT: rales, rhonchi Cardiovascular exam: PRESENT: RRR. ABSENT: diastolic murmur, rubs, systolic murmur GI/Abdominal exam: PRESENT: normal bowel sounds, soft. ABSENT: distended, guarding, mass, organolmegaly, rebound, tenderness Extremities exam: ABSENT: calf tenderness, clubbing, pedal edema Neurological exam: PRESENT: alert, awake, oriented to person, oriented to place , oriented to time, oriented to situation, CN II-XII grossly intact. ABSENT: motor sensory deficit Psychiatric exam: PRESENT: appropriate affect Skin exam: PRESENT: dry, intact, warm. ABSENT: cyanosis, rash Results Laboratory Results: 06/05/17 05:28 06/05/17 05:28 06/05/17 06/05/17 05:28 05:28 WBC 14.6 H RBC 5.17 Hgb 15.4 Hct 45.5 MCV 88 MCH 29.8 MCHC 33.9 RDW 15.5 H Plt Count 183 Seg Neutrophils % Not Reportable Lymphocytes % Not Reportable Monocytes % Not Reportable Eosinophils % Not Reportable Basophils % Not Reportable Absolute Neutrophils Not Reportable Absolute Lymphocytes Not Reportable Absolute Monocytes Not Reportable Absolute Eosinophils Not Reportable Absolute Basophils Not Reportable Sodium 141.0 Potassium 4.4 Chloride 101 Carbon Dioxide 32 H Anion Gap 8 BUN 17 Creatinine 0.69 Est GFR ( Amer) > 60 Est GFR (Non-Af Amer) > 60 Glucose 150 H Calcium 8.9 Impressions: Chest X-Ray 06/01/17 14:33 IMPRESSION: NO ACUTE RADIOGRAPHIC FINDING IN THE CHEST. Chest/Abdomen CTA 06/01/17 15:52 IMPRESSION: No evidence for pulmonary embolic disease. No acute consolidations or pleural effusions are identified. 5 mm pulmonary nodule on the right with followup recommendations as noted below. Other findings as noted above Assessment & Plan - Diagnosis (1) COPD exacerbation Is this a current diagnosis for this admission?: Yes Plan: Patient is improved with IV steroids, nebulizers, antibiotics. Will also add on inhaled Symbicort. (2) Abnormal urinalysis Is this a current diagnosis for this admission?: Yes Plan: Continue with Levaquin. Cultures have been negative. (3) Essential hypertension Is this a current diagnosis for this admission?: Yes Plan: Patient normally takes felodipine at home. We do not carry that here. He reports he is unable to take amlodipine (4) PTSD (post-traumatic stress disorder) Is this a current diagnosis for this admission?: Yes (5) Pulmonary nodule Is this a current diagnosis for this admission?: Yes Plan: This has been long-standing and the patient reports is been followed by his primary care doctor. - Time Time Spent with patient: 25-34 minutes - Inpatient Certification Medical Necessity: Need Close Monitoring Due to Risk of Patient Decompensation
[2017-06-05] MEDS: BUDESONIDE/FORMOTEROL 160-4.5 MCG 60 PUFF/6 GM MDI IH SCH (21:08)
[2017-06-05] MEDS: QUETIAPINE FUMARATE 100 MG TABLET PO SCH (21:08)
[2017-06-06] MEDS: IPRATROPIUM/ALBUTEROL 0.5-2.5 MG/3 ML AMPUL NEB SCH ×3 (04:11→12:11)
[2017-06-06] MEDS: LANSOPRAZOLE 30 MG TAB.RAP.DR PO SCH (06:57)
[2017-06-06] MEDS: METHYLPREDNISOLONE INJ 125 MG/2 ML SDV IV SCH ×2 (06:57→13:56)
[2017-06-06] MEDS: AMLODIPINE BESYLATE 5 MG TABLET PO SCH (09:21)
[2017-06-06] MEDS: ENOXAPARIN SODIUM INJ 40 MG/0.4 ML DISP.SYRIN SUBCUT SCH (09:22)
[2017-06-06] MEDS: LEVOFLOXACIN 750 MG TABLET PO SCH (09:27)
[2017-06-06] MEDS: SERTRALINE HCL 50 MG TABLET PO SCH (09:27)
[2017-06-06] MEDS: DOCUSATE SODIUM 100 MG CAPSULE PO SCH (09:27)
[2017-06-06] MEDS: ASPIRIN 81 MG TABLET, CHEWABLE PO SCH (09:28)
[2017-06-06] MEDS: BUDESONIDE/FORMOTEROL 160-4.5 MCG 60 PUFF/6 GM MDI IH SCH (09:31)
--- NOTE | 2017-06-06 12:04 | PDOC DISCHARGE SUMMARY ---
General - Admit/Disc Date/PCP Admission Date/Primary Care Provider: 06/01/17 18:35 Discharge Date: 06/06/17 - Discharge Diagnosis (1) COPD exacerbation Is this a current diagnosis for this admission?: Yes (2) Abnormal urinalysis Is this a current diagnosis for this admission?: Yes (3) Essential hypertension Is this a current diagnosis for this admission?: Yes (4) PTSD (post-traumatic stress disorder) Is this a current diagnosis for this admission?: Yes (5) Pulmonary nodule Is this a current diagnosis for this admission?: Yes - Additional Information Resuscitation Status: Full Code Discharge Diet: Cardiac Discharge Activity: Activity As Tolerated Home Medications: Albuterol Sulfate [Proair HFA] 2 puff IH DAILYP PRN 06/02/17 Aspirin [Aspirin EC] 81 mg PO DAILY 06/02/17 Baclofen [Baclofen 10 mg Tablet] 10 mg PO DAILYP PRN 06/02/17 Cetirizine HCl [Zyrtec 10 mg Tablet] 1 tab PO DAILY 06/02/17 Diphenhydramine HCl [Benadryl 25 mg Capsule] 25 mg PO HSP PRN 06/02/17 Felodipine [Plendil] 10 mg PO DAILY 06/02/17 Latanoprost [Xalatan 0.005% Oph Soln 2.5 ml] 1 drop OU QHS 06/02/17 Montelukast Sodium [Singulair 10 mg Tablet] 10 mg PO QHS 06/02/17 Quetiapine Fumarate [Seroquel] 50 mg PO QHS 06/02/17 Sertraline HCl [Zoloft] 100 mg PO DAILY 06/02/17 Prednisone 10 mg PO DAILY #39 tablet 06/04/17 Budesonide/Formoterol Fumarate [Symbicort HFA 160-4.5 mcg Inhaler 6 gm] 2 puff IH Q12 #1 inhaler 06/06/17 Ipratropium/Albuterol Sulfate [Duoneb 3 ml Ampul] 3 ml NEB RTQ4 #120 vial.neb History of Present Illness History of Present Illness: JT CHATMAN is a 67 year old male with a history of COPD who presented to the emergency room with a low-grade fever, cough, wheezing. The patient has been given steroids in the emergency room with minimal relief. The patient's oxygen saturation decreased with ambulation. Patient also said lower extremity edema but no orthopnea or PND. Patient is admitted for treatment of an acute COPD exacerbation. Hospital Course Hospital Course: 59-year-old gentleman with a history of COPD who presented with an acute COPD exacerbation. Patient was treated with IV steroids and nebulizers. He also was put on Levaquin. Patient has completed a course of Levaquin and his respiratory status has improved. His oxygen levels normal at rest however with ambulation it drops down into the mid 80s. Because of this he will be sent home. The patient had an abnormal urinalysis but cultures were negative. He however has completed a course of antibiotics. The patient also has a lung nodule which has been present for several years and is being followed by his primary care doctor. No further workup was done for this. The patient is followed at the [facility] in [facility]. He lives here part of the year and lives there the other part of the year. The patient will be sent home on a steroid taper as well as home oxygen and Symbicort. Physical Exam Vital Signs: Temp Pulse Resp BP Pulse Ox 97.9 F 64 18 184/93 H 92 06/06/17 08:06 06/06/17 08:25 06/06/17 08:25 06/06/17 08:06 06/06/17 08:25 Pulse Oximeter Continuous Start: 06/01/17 21: 02 Freq: RTQ4 Status: Complete Document 06/03/17 19:56 EAL (Rec: 06/03/17 20:53 EAL [email or web address]) Pulse Oximetry Assessment Oxygen Saturation (92-100) 92 Oxygen Flow Rate (L/min) 1 Oxygen Delivery Method Nasal Cannula Fraction of Inspired Oxygen (FIO2) 24 Equipment Usage Equipment Discontinued Continuous SpO2 Machine # [id number] Intake & Output 06/05/17 06/06/17 06/07/17 06:59 06:59 06:59 Intake Total 1880 2304 Output Total 1280 Balance 1880 1024 Weight 128.5 kg 128.5 kg 128.5 kg General appearance: PRESENT: no acute distress Eye exam: PRESENT: conjunctiva pink. ABSENT: scleral icterus Mouth exam: PRESENT: moist, tongue midline Neck exam: ABSENT: JVD Respiratory exam: PRESENT: wheezes. ABSENT: rales, rhonchi Cardiovascular exam: PRESENT: RRR. ABSENT: diastolic murmur, rubs, systolic murmur GI/Abdominal exam: PRESENT: normal bowel sounds, soft. ABSENT: distended, guarding, mass, organolmegaly, rebound, tenderness Extremities exam: ABSENT: calf tenderness, clubbing, pedal edema Neurological exam: PRESENT: alert, awake, oriented to person, oriented to place , oriented to time, oriented to situation, CN II-XII grossly intact. ABSENT: motor sensory deficit Psychiatric exam: PRESENT: appropriate affect Skin exam: PRESENT: dry, intact, warm. ABSENT: cyanosis, rash Results Laboratory Results: 06/05/17 05:28 06/05/17 05:28 Impressions: Chest X-Ray 06/01/17 14:33 IMPRESSION: NO ACUTE RADIOGRAPHIC FINDING IN THE CHEST. Chest/Abdomen CTA 06/01/17 15:52 IMPRESSION: No evidence for pulmonary embolic disease. No acute consolidations or pleural effusions are identified. 5 mm pulmonary nodule on the right with followup recommendations as noted below. Other findings as noted above Qualifiers PATEINT BEING DISCHARGED WITH ANY OF THE FOLLOWING DIAGNOSIS?: No Plan Discharge Plan: Patient is discharged home. Will follow with primary care doctor next 1-2 weeks. We will arrange for him to get home oxygen. Time Spent: Greater than 30 Minutes
[2017-06-06 14:32] VITALS: BP 167/91
== END 2017-06-06 16:05 | disposition home or self-care (01) | DRG 192 ==
LOC: ER 14:24 → UNDOADMIN 18:32 → EH 18:32 → 4S 20:39
DX: J44.1 Chronic obstructive pulmonary disease with (acute) exacerbation (principal); R82.90 Unspecified abnormal findings in urine; I10 Essential (primary) hypertension; F43.10 Post-traumatic stress disorder, unspecified; R91.1 Solitary pulmonary nodule; Z79.899 Other long term (current) drug therapy; Z79.82 Long term (current) use of aspirin; Z88.2 Allergy status to sulfonamides; Z88.8 Allergy status to other drugs, medicaments and biological substances
CPT/HCPCS: 36415; 36600; 71010; 71275; 80048; 80053; 81001; 82550; 82553; 82803; 83605; 83880; 84484; 85025; 87040; 87086; 93005; 93010; 94640; 94762; 96374; 96376; 99285; J0360; J1650; J2930; J3475; J3490; J7030; J7512; J7614; J7620

== ENCOUNTER 2017-06-07 23:43 | Inpatient (IN) | payer OTHER, MEDICARE ==
[2017-06-07] MEDS ORDERED: IPRATROPIUM/ALBUTEROL 0.5-2.5 MG/3 ML AMPUL NEB ONE (23:46)
[2017-06-07] MEDS ORDERED: METHYLPREDNISOLONE INJ 125 MG/2 ML SDV IV ONE (23:46)
--- NOTE | 2017-06-07 23:49 | ER Document Report ---
ED General - General Stated Complaint: TROUBLE BREATHING Time Seen by Provider: 06/07/17 23:46 Notes: Patient is a 67-year-old male who presents with complaint of difficulty breathing. He was recently discharged from hospital after COPD exacerbation. He is post be placed on home oxygen but [facility]. His breathing got worse and now he is return to the ER. When paramedics arrived at his house his O2 saturations were 75-78%. They placed him on nasal cannula. They give a breathing treatment. Patient says he is feeling some better but still feels short of breath. No other complaints at this time. He denies any chest pain. No recent fevers. No recent pneumonia. TRAVEL OUTSIDE OF THE [place] IN LAST 30 DAYS: No - Related Data Allergies/Adverse Reactions: Sulfa (Sulfonamide Antibiotics) Allergy (Verified 06/01/17 14:30) amlodipine Adverse Reaction (Severe, Verified 06/03/17 06:04) Edema Past Medical History - Social History Smoking Status: Former Smoker Frequency of alcohol use: None Drug Abuse: None Family History: None, Reviewed & Not Pertinent - Past Medical History Cardiac Medical History: Reports: Hx Hypertension Pulmonary Medical History: Reports: Hx COPD Renal/ Medical History: Denies: Hx Peritoneal Dialysis Psychiatric Medical History: Reports: Hx Post Traumatic Stress Disorder - Immunizations Hx Diphtheria, Pertussis, Tetanus Vaccination: No Hx Pneumococcal Vaccination: 09/07/09 Review of Systems - Review of Systems Notes: My Normal Review Basic REVIEW OF SYSTEMS: CONSTITUTIONAL : Denies fever, chills, or sweats. Denies recent illness. EENT: Denies eye, ear, throat, or mouth pain or symptoms. Denies nasal or sinus congestion. CARDIOVASCULAR: Denies chest pain. RESPIRATORY: Diffuse wheezing. GASTROINTESTINAL: Denies abdominal pain. Denies nausea, vomiting, or diarrhea. Denies constipation. Last BM: MUSCULOSKELETAL: Denies neck or back pain or joint pain or swelling. SKIN: Denies rash or skin lesions. NEUROLOGICAL: Denies altered mental status or loss of consciousness. Denies headache. Denies weakness or paralysis or loss of use of either side. Denies problems with gait or speech. Denies sensory or motor loss. ALL OTHER SYSTEMS REVIEWED AND NEGATIVE. Physical Exam - Vital signs Vitals: Pulse Ox 91 L 06/07/17 23:45 - Notes Notes: General Appearance: Well nourished, alert, cooperative, moderate acute distress , no obvious discomfort. Vitals: reviewed, See vital signs table. Head: no swelling or tenderness to the head Eyes: PERRL, EOMI, Conjuctiva clear Mouth: No decreasd moisture Lungs: Moderate respiratory distress. Speaks in about 4 word sentences. Patient has diffuse wheezing. Fair air exchange. Heart: Normal rate, Regular rythm, No murmur, no rub Abdomen: Normal BS, soft, No rigidity, No abdominal tenderness, No guarding, no rebound, no abdominal masses, no organomegaly Extremities: strength 5/5 in all extremities, good pulses in all extremities, no swelling or tenderness in the extremities, no edema. Skin: warm, dry, appropriate color, no rash Neuro: speech clear, oriented x 3, normal affect, responds appropriately to questions. Course - Re-evaluation Re-evalutation: 06/08/17 01:59 Patient is feeling much improved. He does have some respiratory acidosis. Clinically looks much improved. He still has some wheezing and tightness in his lungs but he is moving air better than when he first arrived. I will give him another breathing treatment. We will keep him on the BiPAP. Have ordered repeat venous blood gas. I did speak with the hospitalist, Dr. Rob Alvarez, who agrees to admit the patient. Dictation of this chart was performed using voice recognition software; therefore, there may be some unintended grammatical errors. - Vital Signs Vital signs: Temp Pulse Resp BP Pulse Ox 22 H 124/100 H 94 06/08/17 01:01 06/08/17 01:01 06/08/17 01:01 - Laboratory Result Diagrams: 06/08/17 00:35 06/07/17 23:50 Laboratory results interpreted by me: 06/07/17 06/07/17 06/08/17 23:50 23:50 00:35 WBC 13.6 H RBC 5.60 H RDW 15.6 H Absolute Neutrophils 9.9 H Absolute Monocytes 1.5 H VBG pH 7.29 L VBG pCO2 81.8 H* VBG HCO3 38.0 H Chloride 97 L Carbon Dioxide 39 H BUN 23 H Glucose 178 H Direct Bilirubin 0.5 H AST 105 H ALT 84 H - EKG Interpretation by Me Additional EKG results interpreted by me: 06/08/17 00:00 EKG is reviewed and interpreted by me. EKG shows sinus tachycardia with a rate of [address] segment elevation except for single-lead elevation in lead V3. No reciprocal ST segment depressions. MS interval, QRS duration, QTc intervals are within normal range. Old EKG for comparison is from May. Discharge - Discharge Clinical Impression: COPD exacerbation, Respiratory acidosis Condition: Stable Disposition: ADMITTED INPATIENT Admitting Provider: Hospitalist Unit Admitted: Telemetry
--- NOTE | 2017-06-07 23:56 | EKG REPORT ---
SEVERITY:- ABNORMAL ECG - SINUS TACHYCARDIA LEFT AXIS DEVIATION ANTERIOR INFARCT, AGE INDETERMINATE Possible Inferior [place] : Confirmed by: Melinda Cunningham 07-Jun-2017 23:55:21
[2017-06-08] MEDS: MAGNESIUM SULFATE/D5W 1 GM/100 ML RTUPB IV SCH ×2 (00:01→00:45)
[2017-06-08 00:03] LABS: VENOUS BLOOD BASE EXCESS 6.8 mmol/L; VENOUS BLOOD PH 7.29 (7.30-7.42)
[2017-06-08 00:17] LABS: VENOUS BLOOD PCO2 81.8 mmHg (35-63)
[2017-06-08 00:34] LABS: ALANINE AMINOTRANSFERASE 84 U/L (21-72); ALBUMIN 4.2 g/dL (3.5-5.0); ALKALINE PHOSPHATASE 104 U/L (38-126); ANION GAP 6 (5-19); ASPARTATE AMINO TRANSFERASE 105 U/L (17-59); BILIRUBIN,DIRECT 0.5 mg/dL (0.0-0.4); BILIRUBIN,TOTAL 0.5 mg/dL (0.2-1.3); BLOOD UREA NITROGEN 23 mg/dL (7-20); CARBON DIOXIDE 39 mmol/L (22-30); CHLORIDE 97 mmol/L (98-107); CREATININE RESULT 0.95 mg/dL (0.52-1.25); GLUCOSE 178 mg/dL (75-110); POTASSIUM 3.9 mmol/L (3.6-5.0); SODIUM 141.8 mmol/L (137-145); TOTAL PROTEIN 7.4 g/dL (6.3-8.2)
[2017-06-08 00:56] LABS: ABSOLUTE BASOPHILS # (AUTO) 0.1 10^3/uL (0.0-0.2); ABSOLUTE LYMPHOCYTES (AUTO) 2.2 10^3/uL (0.5-4.7); ABSOLUTE MONOCYTES (AUTO) 1.5 10^3/uL (0.1-1.4); ABSOLUTE NEUT (AUTO) 9.9 10^3/uL (1.7-8.2); BASOPHILS % (AUTO) 0.5 % (0-2); EOSINOPHILS % (AUTO) 0.2 % (0-6); HEMATOCRIT 49.3 % (37.9-51.0); HEMOGLOBIN 16.8 g/dL (13.5-17.0); HGB HCT DIFFERENCE 1.1; LYMPHOCYTES % (AUTO) 15.9 % (13-45); MEAN CORPUSCULAR HGB CONC 34.1 g/dL (32.0-36.0); MEAN CORPUSCULAR VOLUME 88 fl (80-97); MONOCYTES % (AUTO) 10.7 % (3-13); RED CELL DISTRIBUTION WIDTH 15.6 % (11.5-14.0); SEGMENTED NEUTROPHILS % (AUTO) 72.7 % (42-78); WHITE BLOOD COUNT 13.6 10^3/uL (4.0-10.5)
--- NOTE | 2017-06-08 01:33 | RADIOLOGY REPORT (SQ) ---
EXAM DESCRIPTION: CHEST SINGLE VIEW COMPLETED DATE/TIME: 06/08/2017 12:32 am REASON FOR STUDY: copd exacerbation COMPARISON: Chest x-ray and CTA chest 06/01/2017. EXAM PARAMETERS: NUMBER OF VIEWS: One view. TECHNIQUE: Single frontal radiographic view of the chest acquired. RADIATION DOSE: NA LIMITATIONS: None. FINDINGS: LUNGS AND PLEURA: No consolidation, pneumothorax or pleural effusion. MEDIASTINUM AND HILAR STRUCTURES: No masses. Contour normal. HEART AND VASCULAR STRUCTURES: Heart normal in size. Normal vasculature. BONES: No acute findings. HARDWARE: None in the chest. IMPRESSION: No acute radiographic finding in the chest. TECHNICAL DOCUMENTATION: JOB ID: [id number]
[2017-06-08] MEDS ORDERED: ALBUTEROL SULFATE 0.083% NEB 2.5 MG/3 ML AMPUL NEB ONE (01:56)
[2017-06-08 02:11] LABS: VENOUS BLOOD HCO3 38.8 mmol/L (20-32); VENOUS BLOOD PH 7.33 (7.30-7.42)
[2017-06-08 03:04] LABS: VENOUS BLOOD PCO2 74.6 mmHg (35-63)
[2017-06-08] MEDS ORDERED: CHLORPHENIRAMINE MALEATE 4 MG TABLET PO ONE (03:14)
[2017-06-08] MEDS ORDERED: LACTULOSE SYRUP 20 GM/30 ML UDCUP PO ONE (03:15)
[2017-06-08] MEDS ORDERED: ACETAMINOPHEN 325 MG TABLET PO PRN (03:17)
[2017-06-08] MEDS ORDERED: BACLOFEN 10 MG TABLET PO PRN (03:19)
[2017-06-08 04:17] LABS: CREATINE KINASE MB 5.49 ng/mL (<4.55)
[2017-06-08 04:22] LABS: TROPONIN I 0.103 ng/mL
[2017-06-08 04:34] LABS: URINE BARBITURATES SCREEN NEGATIVE; URINE METHADONE SCREEN NEGATIVE; URINE OPIATES LOW NEGATIVE; URINE PHENCYCLIDINE SCREEN NEGATIVE
--- NOTE | 2017-06-08 04:39 | PDOC H&P ---
History of Present Illness Admission Date/PCP: 06/08/17 03:17 Patient complains of: Shortness of breath History of Present Illness: JT CHATMAN is a 67 year old male with a past medical history of steroid- dependent COPD, hypertension, obesity and posttraumatic stress disorder who was discharged within the last 48 hours for COPD exacerbation. He was unable to obtain discharge medications or home oxygen stating [facility]. Patient otherwise admits to a nonproductive cough, EMS finds him with oxygen saturations in the 70s in the emergency room he has a PCO2 of 89 bicarb of 39 he started on BiPAP and referred to the hospitalist for admission. He denies fever chills nausea vomiting palpitations or chest pain. Past Medical History Cardiac Medical History: Reports: Hypertension Pulmonary Medical History: Reports: Bronchitis, Chronic Obstructive Pulmonary Disease (COPD) Psychiatric Medical History: Reports: Post Traumatic Stress Disorder Social History Information Source: Patient Smoking Status: Former Smoker Frequency of Alcohol Use: Social Hx Recreational Drug Use: No Drugs: None Hx Prescription Drug Abuse: No - Advance Directive Resuscitation Status: Full Code Family History Family History: COPD Parental Family History Reviewed: Yes Children Family History Reviewed: Yes Sibling(s) Family History Reviewed.: Yes Medication/Allergy Home Medications: Albuterol Sulfate [Proair HFA] 2 puff IH DAILYP PRN 06/02/17 Aspirin [Aspirin EC] 81 mg PO DAILY 06/02/17 Baclofen [Baclofen 10 mg Tablet] 10 mg PO DAILYP PRN 06/02/17 Cetirizine HCl [Zyrtec 10 mg Tablet] 1 tab PO DAILY 06/02/17 Diphenhydramine HCl [Benadryl 25 mg Capsule] 25 mg PO HSP PRN 06/02/17 Felodipine [Plendil] 10 mg PO DAILY 06/02/17 Latanoprost [Xalatan 0.005% Oph Soln 2.5 ml] 1 drop OU QHS 06/02/17 Montelukast Sodium [Singulair 10 mg Tablet] 10 mg PO QHS 06/02/17 Quetiapine Fumarate [Seroquel] 50 mg PO QHS 06/02/17 Sertraline HCl [Zoloft] 100 mg PO DAILY 06/02/17 Prednisone 10 mg PO DAILY #39 tablet 06/04/17 Budesonide/Formoterol Fumarate [Symbicort HFA 160-4.5 mcg Inhaler 6 gm] 2 puff IH Q12 #1 inhaler 06/06/17 Ipratropium/Albuterol Sulfate [Duoneb 3 ml Ampul] 3 ml NEB RTQ4 #120 vial.neb Allergies/Adverse Reactions: Sulfa (Sulfonamide Antibiotics) Allergy (Verified 06/01/17 14:30) amlodipine Adverse Reaction (Severe, Verified 06/03/17 06:04) Edema Review of Systems Constitutional: ABSENT: chills, fever(s), headache(s), weight gain, weight loss Eyes: ABSENT: visual disturbances Ears: ABSENT: hearing changes Cardiovascular: ABSENT: chest pain, dyspnea on exertion, edema, orthropnea, palpitations Respiratory: ABSENT: cough, hemoptysis Gastrointestinal: ABSENT: abdominal pain, constipation, diarrhea, hematemesis, hematochezia, nausea, vomiting Genitourinary: ABSENT: dysuria, hematuria Musculoskeletal: ABSENT: joint swelling Integumentary: ABSENT: rash, wounds Neurological: ABSENT: abnormal gait, abnormal speech, confusion, dizziness, focal weakness, syncope Psychiatric: ABSENT: anxiety, depression, homidical ideation, suicidal ideation Endocrine: ABSENT: cold intolerance, heat intolerance, polydipsia, polyuria Hematologic/Lymphatic: ABSENT: easy bleeding, easy bruising Physical Exam Vital Signs: Temp Pulse Resp BP Pulse Ox 22 H 150/85 H 93 06/08/17 03:31 06/08/17 03:31 06/08/17 04:00 General appearance: PRESENT: mild distress, morbidly obese Head exam: PRESENT: atraumatic, normocephalic Eye exam: PRESENT: conjunctiva pink, EOMI, PERRLA. ABSENT: scleral icterus Ear exam: PRESENT: normal external ear exam Mouth exam: PRESENT: moist, tongue midline Neck exam: ABSENT: carotid bruit, JVD, lymphadenopathy, thyromegaly Respiratory exam: PRESENT: accessory muscle use, prolonged expiratory phas, retraction, symmetrical, tachypnea. ABSENT: rhonchi Pulses: PRESENT: normal dorsalis pedis pul Vascular exam: PRESENT: normal capillary refill GI/Abdominal exam: PRESENT: distended, hypoactive bowel sounds, normal bowel sounds, soft. ABSENT: ascites, guarding, mass, organolmegaly, rebound, tenderness Rectal exam: PRESENT: deferred Extremities exam: PRESENT: full ROM, +1 edema. ABSENT: calf tenderness, clubbing, pedal edema Neurological exam: PRESENT: alert, awake, oriented to person, oriented to place , oriented to time, oriented to situation, CN II-XII grossly intact. ABSENT: motor sensory deficit Psychiatric exam: PRESENT: appropriate affect, normal mood. ABSENT: homicidal ideation, suicidal ideation Skin exam: PRESENT: dry, intact, warm. ABSENT: cyanosis, rash Results Laboratory Results: 06/08/17 06/08/17 03:25 03:25 Creatine Kinase 107 CK-MB (CK-2) 5.49 H Troponin I 0.103 Impressions: Chest X-Ray 06/07/17 23:46 IMPRESSION: No acute radiographic finding in the chest. Assessment & Plan - Diagnosis (1) COPD exacerbation Is this a current diagnosis for this admission?: Yes Plan: Albuterol and Atrovent, flutter valve, empiric antibiotics. Will obtain discharge planning consultation for coordination of outpatient oxygen and medications. (2) Respiratory acidosis Is this a current diagnosis for this admission?: Yes Plan: BiPAP and avoid sedation (3) Essential hypertension Is this a current diagnosis for this admission?: Yes Plan: JAMILA inhibitor and hydralazine as needed (4) PTSD (post-traumatic stress disorder) Is this a current diagnosis for this admission?: Yes Plan: Josh. - Time Time Spent: 30 to 50 Minutes - Inpatient Certification Medical Necessity: Need Close Monitoring Due to Risk of Patient Decompensation
[2017-06-08] MEDS ORDERED: CHLORPHENIRAMINE MALEATE 4 MG TABLET ONE (04:52)
[2017-06-08] MEDS ORDERED: FLUTICASONE NASAL SPRAY 50 MCG/SPRY 120 SPRAY/16 GM ONE (04:53)
[2017-06-08] MEDS ORDERED: ATORVASTATIN CALCIUM 80 MG TABLET PO ONE (05:12)
[2017-06-08] MEDS ORDERED: CLOPIDOGREL BISULFATE 75 MG TABLET PO ONE (05:12)
[2017-06-08] MEDS ORDERED: ASPIRIN 81 MG TABLET, CHEWABLE PO ONE (05:13)
[2017-06-08] MEDS ORDERED: CLOPIDOGREL BISULFATE 75 MG TABLET ONE (05:32)
[2017-06-08] MEDS ORDERED: HEPARIN SOD (PORCINE) 5,000 UNIT/ML 1 ML SYRINGE SUBCUT SCH (06:00)
[2017-06-08] MEDS: IPRATROPIUM/ALBUTEROL 0.5-2.5 MG/3 ML AMPUL NEB SCH ×3 (07:52→20:09)
[2017-06-08] MEDS ORDERED: INFLUENZA ADLT QUAD (36MOS+) 2017-18 VAC 0.5 ML SYR IM PRN (08:17)
[2017-06-08] MEDS: PREDNISONE 20 MG TABLET PO SCH ×2 (09:31→18:09)
[2017-06-08] MEDS: ASPIRIN 81 MG TABLET, ENT COATED PO SCH (09:31)
[2017-06-08] MEDS: LEVOFLOXACIN 750 MG/D5W RTU 750 MG/150 ML RTUPB IV SCH (09:33)
[2017-06-08] MEDS: FLUTICASONE NASAL SPRAY 50 MCG/SPRY 120 SPRAY/16 GM NASL SCH ×2 (09:38→21:27)
[2017-06-08] MEDS ORDERED: FELODIPINE 10 MG PO SCH (10:00)
[2017-06-08] MEDS ORDERED: SERTRALINE HCL 50 MG TABLET PO SCH (10:00)
[2017-06-08 10:46] LABS: ANION GAP 6 (5-19); BLOOD UREA NITROGEN 21 mg/dL (7-20); CALCIUM 8.8 mg/dL (8.4-10.2); CARBON DIOXIDE 38 mmol/L (22-30); CHLORIDE 97 mmol/L (98-107); CREATININE RESULT 0.82 mg/dL (0.52-1.25); GLUCOSE 153 mg/dL (75-110); POTASSIUM 4.7 mmol/L (3.6-5.0); SODIUM 141.4 mmol/L (137-145)
[2017-06-08 10:56] LABS: CREATINE KINASE MB 5.33 ng/mL (<4.55); TROPONIN I 0.109 ng/mL
[2017-06-08] MEDS ORDERED: SERTRALINE HCL 50 MG TABLET PO ONE (11:30)
--- NOTE | 2017-06-08 14:15 | PDOC PROGRESS REPORT ---
Subjective Progress Note for:: 06/08/17 Subjective:: Complains of some shortness of breath relieved with BiPAP. Physical Exam Vital Signs: Temp Pulse Resp BP Pulse Ox 98.4 F 73 18 144/88 H 98 06/08/17 11:14 06/08/17 11:14 06/08/17 11:14 06/08/17 11:14 06/08/17 11:14 General appearance: PRESENT: mild distress Eye exam: PRESENT: conjunctiva pink. ABSENT: scleral icterus Mouth exam: PRESENT: moist, tongue midline Neck exam: ABSENT: JVD Respiratory exam: PRESENT: wheezes - Bilateral expiratory wheezes. ABSENT: rales, rhonchi Cardiovascular exam: PRESENT: RRR. ABSENT: diastolic murmur, rubs, systolic murmur GI/Abdominal exam: PRESENT: normal bowel sounds, soft. ABSENT: distended, guarding, mass, organolmegaly, rebound, tenderness Extremities exam: ABSENT: calf tenderness, clubbing, pedal edema Neurological exam: PRESENT: alert, awake, oriented to person, oriented to place , oriented to time, oriented to situation, CN II-XII grossly intact. ABSENT: motor sensory deficit Psychiatric exam: PRESENT: appropriate affect Skin exam: PRESENT: dry, intact, warm. ABSENT: cyanosis, rash Results Laboratory Results: 06/08/17 09:40 06/08/17 09:40 Sodium 141.4 Potassium 4.7 Chloride 97 L Carbon Dioxide 38 H Anion Gap 6 BUN 21 H Creatinine 0.82 Est GFR ( Amer) > 60 Est GFR (Non-Af Amer) > 60 Glucose 153 H Calcium 8.8 06/08/17 06/08/17 06/08/17 03:25 03:25 09:40 Creatine Kinase 107 90 CK-MB (CK-2) 5.49 H Troponin I 0.103 06/08/17 09:40 Creatine Kinase CK-MB (CK-2) 5.33 H Troponin I 0.109 Impressions: Chest X-Ray 06/07/17 23:46 IMPRESSION: No acute radiographic finding in the chest. Assessment & Plan - Diagnosis (1) COPD exacerbation Is this a current diagnosis for this admission?: Yes Plan: Patient had worsening of his COPD when he was just recently discharged home. Will continue the BiPAP and steroids. [facility] (2) Elevated troponin Is this a current diagnosis for this admission?: Yes Plan: Most likely this is secondary to the acute respiratory distress. Will ask cardiology to evaluate to see if the patient needs any further cardiac workup. (3) Essential hypertension Is this a current diagnosis for this admission?: Yes (4) PTSD (post-traumatic stress disorder) Is this a current diagnosis for this admission?: Yes (5) Pulmonary nodule Is this a current diagnosis for this admission?: Yes Plan: Patient has had a long-standing pulmonary nodule followed by his primary care doctor with no significant change in size over the last several years - Time Time Spent with patient: 25-34 minutes - Inpatient Certification Medical Necessity: Need Close Monitoring Due to Risk of Patient Decompensation
--- NOTE | 2017-06-08 14:35 | EKG REPORT ---
SEVERITY:- ABNORMAL ECG - SINUS RHYTHM PROBABLE INFERIOR INFARCT, OLD ANTERIOR INFARCT, AGE INDETERMINATE : Confirmed by: Eulalia Orourke MD 08-Jun-2017 14:34:08
[2017-06-08 16:07] LABS: CREATINE KINASE MB 4.48 ng/mL (<4.55); TROPONIN I 0.09 ng/mL
[2017-06-08] MEDS: ENOXAPARIN SODIUM INJ 120 MG/0.8 ML DISP.SYRIN SUBCUT SCH (18:08)
[2017-06-08] MEDS ORDERED: FELODIPINE 10 MG PO ONE (18:30)
--- NOTE | 2017-06-08 19:41 | PDOC CONSULTATION ---
Consultation Consult Date: 06/08/17 Attending physician:: NOA FRAUSTO Consult reason:: Positive troponin I History of Present Illness Admission Date/PCP: 06/08/17 03:17 Patient complains of: Shortness of breath History of Present Illness: JT CHATMAN is a 67 year old male with a past medical history of steroid- dependent COPD, hypertension, obesity and posttraumatic stress disorder who was discharged within the last 48 hours for COPD exacerbation. He was unable to obtain discharge medications or home oxygen stating [facility]. Patient otherwise admits to a nonproductive cough, EMS finds him with oxygen saturations in the 70s in the emergency room he has a PCO2 of 89 bicarb of 39 he started on BiPAP and referred to the hospitalist for admission. He denies fever chills nausea vomiting palpitations or chest pain. Patient had positive troponin I. I been asked to evaluate him. I did not find a echo report therefore did order a echocardiogram as patient main symptoms are shortness of breath. Past Medical History Cardiac Medical History: Reports: Hypertension Pulmonary Medical History: Reports: Bronchitis, Chronic Obstructive Pulmonary Disease (COPD) Psychiatric Medical History: Reports: Post Traumatic Stress Disorder Social History Information Source: Patient Smoking Status: Former Smoker Frequency of Alcohol Use: Social Hx Recreational Drug Use: No Drugs: None Hx Prescription Drug Abuse: No - Advance Directive Resuscitation Status: Full Code Surrogate healthcare decision maker:: Patient's is the surrogate decision-maker Family History Family History: COPD Parental Family History Reviewed: Yes Children Family History Reviewed: Yes Sibling(s) Family History Reviewed.: Yes Medication/Allergy Home Medications: Albuterol Sulfate [Proair HFA] 2 puff IH DAILYP PRN 06/02/17 Aspirin [Aspirin EC] 81 mg PO DAILY 06/02/17 Cetirizine HCl [Zyrtec 10 mg Tablet] 10 mg PO DAILY 06/02/17 Diphenhydramine HCl [Benadryl 25 mg Capsule] 25 mg PO HSP PRN 06/02/17 Felodipine [Plendil] 10 mg PO DAILY 06/02/17 Latanoprost [Xalatan 0.005% Oph Soln 2.5 ml] 1 drop OU QHS 06/02/17 Montelukast Sodium [Singulair 10 mg Tablet] 10 mg PO QHS 06/02/17 Quetiapine Fumarate [Seroquel] 50 mg PO QHS 06/02/17 Sertraline HCl [Zoloft] 50 mg PO DAILY 06/02/17 Budesonide/Formoterol Fumarate [Symbicort HFA 160-4.5 mcg Inhaler 6 gm] 2 puff IH Q12 #1 inhaler 06/06/17 Allergies/Adverse Reactions: Sulfa (Sulfonamide Antibiotics) Allergy (Verified 06/01/17 14:30) amlodipine Adverse Reaction (Severe, Verified 06/03/17 06:04) Edema Review of Systems Review of Systems: Please see history of present illness and past medical history as wall. Constitutional: No fever or chills reported. Head : No recent chronic headaches, recent head injury. Eyes: No recent eye pain, diplopia, redness, discharge, acute visual changes. Ears: No recent chronic ear pain, acute hearing loss, ear discharge. Oral cavity: No recent ulcerations, bleeding, oral cavity discomfort. Neck: No recent acute neck pain reported. Hematologic: No recent easy bruising or bleeding or hematologic malignancy reported. Lymphatic: No recent lymphatic malignancy, chronic lymphadenopathy reported yet Cardiovascular system review: See history of present illness. Respiratory system review: No recent chronic cough, hemoptysis, blood clots in the lungs reported. Mild Shortness of breath on exertion Gastrointestinal system review: Negative for any recent acute or chronic abdominal pain, hematemesis, melena, recent change in bowel habits. Genitourinary system review: No recent acute or chronic hematuria, flank pain, UTI etc. reported. Skin system review: Negative for any recent abnormal bruising, no rash, no pruritus reported. Neurologic: No prior history of strokes, mini strokes, seizure disorder. Psychologic: No history of major psychosis or major depression reported. Musculoskeletal: Minor aches and pains reported. No acute joint swelling reported. Endocrine: No recent polyuria, polydipsia, recent heat or cold intolerance. Physical Exam Vital Signs: Temp Pulse Resp BP Pulse Ox 98.4 F 61 18 142/77 H 95 06/08/17 15:47 06/08/17 15:47 06/08/17 15:47 06/08/17 15:47 06/08/17 15:47 Intake & Output 06/07/17 06/08/17 06/09/17 06:59 06:59 06:59 Intake Total 1025 Balance 1025 Exam: GENERAL: well-nourished and in no acute distress. Alert and oriented x3 HEAD: Atraumatic, normocephalic. EYES: Pupils equal round and reactive to light, extraocular movements intact, sclera anicteric, conjunctiva are normal. ENT: TMs normal, nares patent, oropharynx clear without exudates. Moist mucous membranes. No oral ulcerations or bleeding gums noted NECK: supple without lymphadenopathy. Trachea is central. No cervical or axillary lymphadenopathy noted. Carotids are 2+, JVD WNL LUNGS: Respiration seems mildly labored, no significant accessory muscle action noted. Bilateral coarse wheezing noted. CHEST: Palpation of the chest wall shows no significant chest wall tenderness. No other significant abnormalities noted. HEART: [place] CELL LINER, No PSH, 1/6 TJ aortic area, 1/6 riggs systolic murmur mitral area, no rubs, no gallops. ABDOMEN: Soft, no significant tenderness appreciated, normoactive bowel sounds. No guarding, no rebound. No rigidity noted . No masses appreciated. EXTREMITIES: Pedal pulses are 1-2+, no calf tenderness noted. No clubbing or cyanosis.1+ pedal edema noted NEUROLOGICAL: Focused neurological exam showed no significant neurologic deficit. Normal speech, no focal weakness appreciated. PSYCH: Normal mood, normal affect. Judgment and insight within normal limits. SKIN: No significant ecchymosis, rash, ulcerations or signs of pruritus noted. MUSCULOSKELETAL EXAM: No significant joint swelling noted. Results Laboratory Results: 06/08/17 09:40 06/08/17 09:40 Sodium 141.4 Potassium 4.7 Chloride 97 L Carbon Dioxide 38 H Anion Gap 6 BUN 21 H Creatinine 0.82 Est GFR ( Amer) > 60 Est GFR (Non-Af Amer) > 60 Glucose 153 H Calcium 8.8 06/08/17 06/08/17 06/08/17 03:25 03:25 09:40 Creatine Kinase 107 90 CK-MB (CK-2) 5.49 H Troponin I 0.103 06/08/17 06/08/17 06/08/17 09:40 15:32 15:32 Creatine Kinase 70 CK-MB (CK-2) 5.33 H 4.48 Troponin I 0.109 0.090 EKG Comments: Twelve-lead EKG shows low voltage QRS complex and evidence of prior inferior and anterior KS, old by EKG 2D echo however shows normal LVEF and no significant wall motion abnormalities. Impressions: Chest X-Ray 06/07/17 23:46 IMPRESSION: No acute radiographic finding in the chest. Assessment & Plan - Diagnosis (1) COPD exacerbation Is this a current diagnosis for this admission?: Yes (2) Elevated troponin Is this a current diagnosis for this admission?: Yes (3) Essential hypertension Is this a current diagnosis for this admission?: Yes (4) PTSD (post-traumatic stress disorder) Is this a current diagnosis for this admission?: Yes - Notes Notes: COPD with exacerbation: Patient still with significant wheezing. Continue bronchodilator and steroid therapy. Elevated troponin I: Most likely related to hypoxemia, increased RVEDP, LVEDP etc. Doubt acute coronary syndrome. Patient does have significant cardiac risk factors therefore may benefit from the stress test when patient more stable. Hypertension: Reasonably well controlled. Blood pressure goal in this patient is 135/85 or less. This was discussed with the patient. Currently blood pressure under reasonable control. Better medication for this patient are JAMILA inhibitor/ARB/beta travis etc. discussed side effects of uncontrolled hypertension and also severe hypotension. PTSD: Currently stable. Continue with current management plans. Patient currently in the midst of COPD exacerbation. Troponin I elevation most likely related to hypoxemia and COPD exacerbation. Once COPD is stabilized, will consider a nuclear stress test. In the meantime will recommend aggressive risk factor modification and medical management of presumed underlying CAD. 2D echo ordered will review. - Time Time Spent: 30 to 50 Minutes Medications reviewed and adjusted accordingly: Yes
[2017-06-08] MEDS: QUETIAPINE FUMARATE 25 MG TABLET PO SCH (21:25)
[2017-06-08] MEDS: MONTELUKAST SODIUM 10 MG TABLET PO SCH (21:26)
[2017-06-08] MEDS: LATANOPROST 0.005% OPH SOLN 2.5 ML OU SCH (21:27)
--- NOTE | 2017-06-08 21:49 | XCELERA REPORT ---
[address] [address] Transthoracic Echocardiogram Report Name: JT CHATMAN Age: 67 yrs Gender: Male : 1950 Patient Status: Inpatient Patient Location: [address] [place] [address] Study Date: 06/08/2017 03:05 PM Height: 70 in Weight: 261 lb BSA: 2.3 m2 Procedure: A complete two-dimensional transthoracic echocardiogram was performed (2D, M-mode, spectral and color flow Doppler). The study was technically difficult with many images being suboptimal in quality. Reason For Study: Positve troponin I Ordering Physician: MELINDA BROOKS Performed By: Liseth Ross Interpretation Summary The left ventricular ejection fraction is preserved. There is mild concentric left ventricular hypertrophy. Doppler measurements suggest pseudonormalized left ventricular relaxation, which is associated with grade II/IV or mild to moderate diastolic dysfunction The left ventricle is grossly normal size. Wall motion cannot be accurately commented on, but no definite regional wall motion abnormalities noted. The right ventricular systolic function is normal. The left atrium is borderline dilated. The right atrium is normal in size There is a trace amount of mitral regurgitation There is no mitral valve stenosis. No aortic regurgitation is present. There is no aortic valve stenosis There is a trace or physiologic amount of tricuspid regurgitation Tricuspid regurgitation jet envelope not well defined to measure RV systolic pressure accurately. The aortic root is not well visualized. The inferior vena cava appeared normal and decreased > 50% with respiration (RAP 5-10 mmHg) Minimal pericardial effusion. MMode/2D Measurements & Calculations RVDd: 3.4 cm LVIDd: 5.1 cm FS: 40.0 % Ao root diam: 2.4 cm IVSd: 1.0 cm LVIDs: 3.0 cm EDV(Teich): 121.8 ml LVPWd: 0.99 cm ESV(Teich): 36.1 ml Ao root area: 4.6 cm2 EF(Teich): 70.3 % LA dimension: 3.6 cm Doppler Measurements & Calculations MV E max gilberto: MV P1/2t max gilberto: Ao V2 max: LV V1 max P.8 cm/sec 89.8 cm/sec 157.1 cm/sec 6.6 mmHg MV A max gilberto: MV P1/2t: 77.2 msec Ao max PG: LV V1 max: 106.6 cm/sec 9.9 mmHg 128.8 cm/sec MV E/A: 0.84 MVA(P1/2t): 2.9 cm2 MV dec slope: 341.0 cm/sec2 MV dec time: 0.26 sec PA V2 max: 87.4 cm/sec PA max P.1 mmHg Left Ventricle The left ventricle is grossly normal size. There is mild concentric left ventricular hypertrophy. The left ventricular ejection fraction is preserved. Doppler measurements suggest pseudonormalized left ventricular relaxation, which is associated with grade II/IV or mild to moderate diastolic dysfunction. Wall motion cannot be accurately commented on, but no definite regional wall motion abnormalities noted. Right Ventricle The right ventricle is mildly dilated. The right ventricular systolic function is normal. Atria The right atrium is normal in size. The left atrium is borderline dilated. Interarterial septum not well visualized and not well dopplered. Cannot comment on ASD/PFO presence. Mitral Valve The mitral valve is grossly normal. There is no mitral valve stenosis. There is a trace amount of mitral regurgitation. Aortic Valve The aortic valve is not well visualized secondary to technical limitations. There is no aortic valve stenosis. No aortic regurgitation is present. Tricuspid Valve The tricuspid valve is not well visualized, but is grossly normal. There is no tricuspid stenosis. There is a trace or physiologic amount of tricuspid regurgitation. Tricuspid regurgitation jet envelope not well defined to measure RV systolic pressure accurately. Pulmonic Valve The pulmonic valve is not well visualized. Great Vessels The aortic root is not well visualized. The inferior vena cava appeared normal and decreased > 50% with respiration (RAP 5-10 mmHg). Effusions Minimal pericardial effusion. : MELINDA BROOKS > Melinda Brooks
[2017-06-08 23:15] LABS: BLOOD UREA NITROGEN 22 mg/dL (7-20); CALCIUM 8.8 mg/dL (8.4-10.2); CHLORIDE 98 mmol/L (98-107); CREATININE RESULT 0.71 mg/dL (0.52-1.25); GLUCOSE 144 mg/dL (75-110); POTASSIUM 4.5 mmol/L (3.6-5.0)
[2017-06-08 23:27] LABS: CREATINE KINASE MB 4.6 ng/mL (<4.55); TROPONIN I 0.058 ng/mL
[2017-06-08 23:37] LABS: ANION GAP 5 (5-19); CARBON DIOXIDE 35 mmol/L (22-30); SODIUM 137.7 mmol/L (137-145)
[2017-06-09] MEDS: IPRATROPIUM/ALBUTEROL 0.5-2.5 MG/3 ML AMPUL NEB SCH ×4 (01:14→19:59)
[2017-06-09] MEDS: ENOXAPARIN SODIUM INJ 120 MG/0.8 ML DISP.SYRIN SUBCUT SCH ×2 (05:17→17:59)
[2017-06-09 05:34] LABS: ABSOLUTE BASOPHILS # (AUTO) 0.1 10^3/uL (0.0-0.2); ABSOLUTE LYMPHOCYTES (AUTO) 2.1 10^3/uL (0.5-4.7); ABSOLUTE MONOCYTES (AUTO) 1.1 10^3/uL (0.1-1.4); ABSOLUTE NEUT (AUTO) 12.5 10^3/uL (1.7-8.2); BASOPHILS % (AUTO) 0.4 % (0-2); HEMATOCRIT 46.5 % (37.9-51.0); HEMOGLOBIN 15.6 g/dL (13.5-17.0); HGB HCT DIFFERENCE 0.3; LYMPHOCYTES % (AUTO) 13.1 % (13-45); MEAN CORPUSCULAR HEMOGLOBIN 29.6 pg (27.0-33.4); MEAN CORPUSCULAR HGB CONC 33.5 g/dL (32.0-36.0); MEAN CORPUSCULAR VOLUME 88 fl (80-97); MONOCYTES % (AUTO) 6.9 % (3-13); RED BLOOD COUNT 5.26 10^6/uL (4.35-5.55); RED CELL DISTRIBUTION WIDTH 15.4 % (11.5-14.0); SEGMENTED NEUTROPHILS % (AUTO) 79.6 % (42-78); WHITE BLOOD COUNT 15.8 10^3/uL (4.0-10.5)
[2017-06-09] MEDS: FELODIPINE 10 MG PO SCH (09:05)
[2017-06-09] MEDS: ASPIRIN 81 MG TABLET, ENT COATED PO SCH (09:05)
[2017-06-09] MEDS: HYDRALAZINE HCL INJ/PF 20 MG/1 ML SDV IV PRN (09:05)
[2017-06-09] MEDS: SERTRALINE HCL 50 MG TABLET PO SCH (09:06)
[2017-06-09] MEDS: PREDNISONE 20 MG TABLET PO SCH ×2 (09:06→17:59)
[2017-06-09] MEDS: FLUTICASONE NASAL SPRAY 50 MCG/SPRY 120 SPRAY/16 GM NASL SCH ×2 (09:06→22:28)
[2017-06-09] MEDS: LEVOFLOXACIN 750 MG/D5W RTU 750 MG/150 ML RTUPB IV SCH (09:06)
--- NOTE | 2017-06-09 11:26 | PDOC PROGRESS REPORT ---
Subjective Progress Note for:: 06/09/17 Physical Exam Vital Signs: Temp Pulse Resp BP Pulse Ox 97.8 F 66 16 178/91 H 93 06/09/17 07:19 06/09/17 08:00 06/09/17 08:00 06/09/17 07:19 06/09/17 08:00 Intake & Output 06/08/17 06/09/17 06/10/17 06:59 06:59 06:59 Intake Total 1211 Balance 1211 Weight 120.9 kg Results Laboratory Results: 06/09/17 05:18 06/08/17 22:44 06/08/17 06/09/17 22:44 05:18 WBC 15.8 H RBC 5.26 Hgb 15.6 Hct 46.5 MCV 88 MCH 29.6 MCHC 33.5 RDW 15.4 H Plt Count 160 Seg Neutrophils % 79.6 H Lymphocytes % 13.1 Monocytes % 6.9 Eosinophils % 0.0 Basophils % 0.4 Absolute Neutrophils 12.5 H Absolute Lymphocytes 2.1 Absolute Monocytes 1.1 Absolute Eosinophils 0.0 Absolute Basophils 0.1 Sodium 137.7 Potassium 4.5 Chloride 98 Carbon Dioxide 35 H Anion Gap 5 BUN 22 H Creatinine 0.71 Est GFR ( Amer) > 60 Est GFR (Non-Af Amer) > 60 Glucose 144 H Calcium 8.8 06/08/17 06/08/17 06/08/17 03:25 03:25 09:40 Creatine Kinase 107 90 CK-MB (CK-2) 5.49 H Troponin I 0.103 06/08/17 06/08/17 06/08/17 09:40 15:32 15:32 Creatine Kinase 70 CK-MB (CK-2) 5.33 H 4.48 Troponin I 0.109 0.090 06/08/17 06/08/17 22:44 22:44 Creatine Kinase 71 CK-MB (CK-2) 4.60 H Troponin I 0.058 Impressions: Chest X-Ray 06/07/17 23:46 IMPRESSION: No acute radiographic finding in the chest. Assessment & Plan - Diagnosis (1) COPD exacerbation Is this a current diagnosis for this admission?: Yes (2) Elevated troponin Is this a current diagnosis for this admission?: Yes (3) Essential hypertension Is this a current diagnosis for this admission?: Yes (4) PTSD (post-traumatic stress disorder) Is this a current diagnosis for this admission?: Yes (5) Obstructive sleep apnea syndrome Is this a current diagnosis for this admission?: Yes - Notes Notes: COPD with exacerbation: Patient still with significant wheezing. Continue bronchodilator and steroid therapy. Elevated troponin I: Most likely related to hypoxemia, increased RVEDP, LVEDP etc. Doubt acute coronary syndrome. Patient does have significant cardiac risk factors therefore may benefit from the stress test when patient more stable. Hypertension: Reasonably well controlled. Blood pressure goal in this patient is 135/85 or less. This was discussed with the patient. Currently blood pressure under reasonable control. Better medication for this patient are JAMILA inhibitor/ARB/beta travis etc. discussed side effects of uncontrolled hypertension and also severe hypotension. PTSD: Currently stable. Continue with current management plans. Sleep apnea: Patient advised on compliance with CPAP therapy and has been advised to use his CPAP machine during this hospitalization. 2D echo shows normal LVEF. No significant valvular abnormalities noted. - Time Time with patient: 15-25 minutes - CODE STATUS was discussed, patient remains full code. Surrogate decision-maker unchanged. Multiple medical problems were addressed. More than 50% of the time spent coordinating care, discussing management plans with involved caregivers. Management plans discussed with involved personnels. Medical decision making was of moderate to high complexity , patient's has multiple comorbidities. Medications reviewed and adjusted accordingly: Yes
[2017-06-09] MEDS ORDERED: THEOPHYLLINE ANHYDROUS 300 MG TAB.SR.12H PO ONE (12:00)
[2017-06-09 12:47] LABS: APPEARANCE,URINE SLIGHTLY-CLOUDY; BILIRUBIN,URINE NEGATIVE (NEGATIVE); GLUCOSE, URINE NEGATIVE (NEGATIVE); KETONES,URINE NEGATIVE (NEGATIVE); LEUKOCYTE ESTERASE,URINE NEGATIVE (NEGATIVE); NITRITE,URINE NEGATIVE (NEGATIVE); PROTEIN,URINE NEGATIVE (NEGATIVE); URINE SPECIFIC GRAVITY 1.008; UROBILINOGEN,URINE NEGATIVE mg/dL (<2.0)
--- NOTE | 2017-06-09 15:14 | PDOC PROGRESS REPORT ---
Subjective Progress Note for:: 06/09/17 Subjective:: Complains of wheezing. Physical Exam Vital Signs: Temp Pulse Resp BP Pulse Ox 98.3 F 71 16 144/81 H 90 L 06/09/17 11:33 06/09/17 14:00 06/09/17 13:56 06/09/17 13:00 06/09/17 13:56 Intake & Output 06/08/17 06/09/17 06/10/17 06:59 06:59 06:59 Intake Total 1211 Balance 1211 Weight 120.9 kg General appearance: PRESENT: no acute distress Eye exam: PRESENT: conjunctiva pink. ABSENT: scleral icterus Ear exam: PRESENT: normal external ear exam Mouth exam: PRESENT: moist, tongue midline Neck exam: ABSENT: JVD Respiratory exam: PRESENT: wheezes - Bilateral expiratory wheezes. ABSENT: rales, rhonchi Cardiovascular exam: PRESENT: RRR. ABSENT: diastolic murmur, rubs, systolic murmur GI/Abdominal exam: PRESENT: normal bowel sounds, soft. ABSENT: distended, guarding, mass, organolmegaly, rebound, tenderness Extremities exam: ABSENT: calf tenderness, clubbing, pedal edema Neurological exam: PRESENT: alert, awake, oriented to person, oriented to place , oriented to time, oriented to situation, CN II-XII grossly intact. ABSENT: motor sensory deficit Psychiatric exam: PRESENT: appropriate affect Skin exam: PRESENT: dry, intact, warm. ABSENT: cyanosis, rash Results Laboratory Results: 06/09/17 05:18 06/08/17 22:44 06/08/17 06/09/17 06/09/17 22:44 05:18 12:30 WBC 15.8 H RBC 5.26 Hgb 15.6 Hct 46.5 MCV 88 MCH 29.6 MCHC 33.5 RDW 15.4 H Plt Count 160 Seg Neutrophils % 79.6 H Lymphocytes % 13.1 Monocytes % 6.9 Eosinophils % 0.0 Basophils % 0.4 Absolute Neutrophils 12.5 H Absolute Lymphocytes 2.1 Absolute Monocytes 1.1 Absolute Eosinophils 0.0 Absolute Basophils 0.1 Sodium 137.7 Potassium 4.5 Chloride 98 Carbon Dioxide 35 H Anion Gap 5 BUN 22 H Creatinine 0.71 Est GFR ( Amer) > 60 Est GFR (Non-Af Amer) > 60 Glucose 144 H Calcium 8.8 Urine Color YELLOW Urine Appearance SLIGHTLY-CLOUDY Urine pH 8.0 Ur Specific [place] 1.008 Urine Protein NEGATIVE Urine Glucose (UA) NEGATIVE Urine Ketones NEGATIVE Urine Blood NEGATIVE Urine Nitrite NEGATIVE Ur Leukocyte Esterase NEGATIVE Urine RBC (Auto) 0 06/08/17 06/08/17 06/08/17 03:25 03:25 09:40 Creatine Kinase 107 90 CK-MB (CK-2) 5.49 H Troponin I 0.103 06/08/17 06/08/17 06/08/17 09:40 15:32 15:32 Creatine Kinase 70 CK-MB (CK-2) 5.33 H 4.48 Troponin I 0.109 0.090 06/08/17 06/08/17 22:44 22:44 Creatine Kinase 71 CK-MB (CK-2) 4.60 H Troponin I 0.058 Impressions: Chest X-Ray 06/07/17 23:46 IMPRESSION: No acute radiographic finding in the chest. Assessment & Plan - Diagnosis (1) COPD exacerbation Is this a current diagnosis for this admission?: Yes Plan: Patient had worsening of his COPD when he was just recently discharged home. Will continue the BiPAP and steroids. [facility] (2) Elevated troponin Is this a current diagnosis for this admission?: Yes Plan: Most likely this is secondary to the acute respiratory distress. Cardiology is following. (3) Essential hypertension Is this a current diagnosis for this admission?: Yes (4) PTSD (post-traumatic stress disorder) Is this a current diagnosis for this admission?: Yes (5) Pulmonary nodule Is this a current diagnosis for this admission?: Yes Plan: Patient has had a long-standing pulmonary nodule followed by his primary care doctor with no significant change in size over the last several years - Time Time Spent with patient: 25-34 minutes - Inpatient Certification Medical Necessity: Need Close Monitoring Due to Risk of Patient Decompensation
[2017-06-09] MEDS: LATANOPROST 0.005% OPH SOLN 2.5 ML OU SCH (22:29)
[2017-06-09] MEDS: QUETIAPINE FUMARATE 25 MG TABLET PO SCH (22:29)
[2017-06-09] MEDS: MONTELUKAST SODIUM 10 MG TABLET PO SCH (22:30)
[2017-06-10] MEDS: IPRATROPIUM/ALBUTEROL 0.5-2.5 MG/3 ML AMPUL NEB SCH ×4 (02:12→19:52)
[2017-06-10 04:52] LABS: HEMATOCRIT 45.8 % (37.9-51.0); HEMOGLOBIN 15.4 g/dL (13.5-17.0); HGB HCT DIFFERENCE 0.4; MEAN CORPUSCULAR HEMOGLOBIN 29.6 pg (27.0-33.4); MEAN CORPUSCULAR HGB CONC 33.5 g/dL (32.0-36.0); MEAN CORPUSCULAR VOLUME 89 fl (80-97); RED BLOOD COUNT 5.18 10^6/uL (4.35-5.55); RED CELL DISTRIBUTION WIDTH 15.3 % (11.5-14.0)
[2017-06-10 05:03] LABS: BLOOD UREA NITROGEN 21 mg/dL (7-20); CALCIUM 8.9 mg/dL (8.4-10.2); CREATININE RESULT 0.77 mg/dL (0.52-1.25); GLUCOSE 125 mg/dL (75-110)
[2017-06-10 05:12] LABS: ANION GAP 8 (5-19); CARBON DIOXIDE 35 mmol/L (22-30); CHLORIDE 97 mmol/L (98-107); POTASSIUM 4.6 mmol/L (3.6-5.0); SODIUM 139.9 mmol/L (137-145)
[2017-06-10] MEDS: ENOXAPARIN SODIUM INJ 120 MG/0.8 ML DISP.SYRIN SUBCUT SCH (05:24)
[2017-06-10] MEDS: LEVOFLOXACIN 750 MG/D5W RTU 750 MG/150 ML RTUPB IV SCH (09:33)
[2017-06-10] MEDS: FELODIPINE 10 MG PO SCH (09:33)
[2017-06-10] MEDS: SERTRALINE HCL 50 MG TABLET PO SCH (09:34)
[2017-06-10] MEDS: ASPIRIN 81 MG TABLET, ENT COATED PO SCH (09:34)
[2017-06-10] MEDS: FLUTICASONE NASAL SPRAY 50 MCG/SPRY 120 SPRAY/16 GM NASL SCH ×2 (09:34→21:21)
[2017-06-10] MEDS: PREDNISONE 20 MG TABLET PO SCH ×2 (09:34→17:28)
[2017-06-10] MEDS ORDERED: THEOPHYLLINE ANHYDROUS 300 MG TAB.SR.12H PO SCH (10:00)
[2017-06-10 10:44] LABS: HEMATOCRIT 45.9 % (37.9-51.0); HEMOGLOBIN 15.3 g/dL (13.5-17.0); MEAN CORPUSCULAR HEMOGLOBIN 29.4 pg (27.0-33.4); MEAN CORPUSCULAR HGB CONC 33.2 g/dL (32.0-36.0); MEAN CORPUSCULAR VOLUME 89 fl (80-97); RED BLOOD COUNT 5.19 10^6/uL (4.35-5.55); RED CELL DISTRIBUTION WIDTH 15.5 % (11.5-14.0); WHITE BLOOD COUNT 12.1 10^3/uL (4.0-10.5)
[2017-06-10 10:58] LABS: PROTHROMBIN TIME 14.2 SEC (11.4-15.4)
[2017-06-10 10:59] LABS: PARTIAL THROMBOPLASTIN TIME 34.9 SEC (23.5-35.8)
[2017-06-10] MEDS ORDERED: AMINOPHYLLINE INJ/PF 250 MG/10 ML SDV IV ONE (11:17)
[2017-06-10] MEDS ORDERED: REGADENOSON INJ 0.4 MG/5 ML DISP.SYRIN IV ONE (11:17)
--- NOTE | 2017-06-10 11:32 | PDOC PROGRESS REPORT ---
Subjective Progress Note for:: 06/10/17 Subjective:: Patient seems to be doing better with gradual improvement. Pt is denying any chest arm or neck discomfort. Patient denying any PND, orthopnea. Patient denied any sustained palpitations, dizziness, syncope, near syncope. Patient denying any fever chills. Patient denying any other significant discomfort. Patient still has significant wheezing. Patient is maintaining sinus rhythm. Review of systems: Rest review of systems negative. Medications: Medications have been reviewed. Physical Exam Vital Signs: Temp Pulse Resp BP Pulse Ox 97.7 F 65 20 159/80 H 95 06/10/17 07:31 06/10/17 07:49 06/10/17 07:49 06/10/17 07:31 06/10/17 07:49 Intake & Output 06/09/17 06/10/17 06/11/17 06:59 06:59 06:59 Intake Total 1211 1423 Balance 1211 1423 Weight 120.9 kg 122.2 kg Exam: GENERAL: well-nourished and in no acute distress. Alert and oriented x3 HEAD: Atraumatic, normocephalic. EYES: Pupils equal round and reactive to light, extraocular movements intact, sclera anicteric, conjunctiva are normal. ENT: TMs normal, nares patent, oropharynx clear without exudates. Moist mucous membranes. No oral ulcerations or bleeding gums noted NECK: supple without lymphadenopathy. Trachea is central. No cervical or axillary lymphadenopathy noted. Carotids are 2+, JVD WNL LUNGS: Respiration seems nonlabored, no significant accessory muscle action noted. Bilateral wheezes rales or rhonchi noted. No significant dullness noted on percussion. CHEST: Palpation of the chest wall shows no significant chest wall tenderness. No other significant abnormalities noted. HEART: [facility], No PSH, 1/6 TJ aortic area, 1/6 riggs systolic murmur mitral area, no rubs, no gallops. ABDOMEN: Soft, no significant tenderness appreciated, normoactive bowel sounds. No guarding, no rebound. No rigidity noted . No masses appreciated. EXTREMITIES: Pedal pulses are 1-2+, no calf tenderness noted. No clubbing or cyanosis.trace to 1+ pedal edema noted NEUROLOGICAL: Focused neurological exam showed no significant neurologic deficit. Normal speech, no focal weakness appreciated. PSYCH: Normal mood, normal affect. Judgment and insight within normal limits. SKIN: No significant ecchymosis, rash, ulcerations or signs of pruritus noted. MUSCULOSKELETAL EXAM: No significant joint swelling noted. Results Laboratory Results: 06/10/17 10:34 06/10/17 10:34 06/09/17 06/10/17 06/10/17 12:30 04:34 04:34 WBC 13.0 H RBC 5.18 Hgb 15.4 Hct 45.8 MCV 89 MCH 29.6 MCHC 33.5 RDW 15.3 H Plt Count 178 Sodium 139.9 Potassium 4.6 Chloride 97 L Carbon Dioxide 35 H Anion Gap 8 BUN 21 H Creatinine 0.77 Est GFR ( Amer) > 60 Est GFR (Non-Af Amer) > 60 Glucose 125 H Calcium 8.9 Urine Color YELLOW Urine Appearance SLIGHTLY-CLOUDY Urine pH 8.0 Ur Specific [place] 1.008 Urine Protein NEGATIVE Urine Glucose (UA) NEGATIVE Urine Ketones NEGATIVE Urine Blood NEGATIVE Urine Nitrite NEGATIVE Ur Leukocyte Esterase NEGATIVE Urine RBC (Auto) 0 06/10/17 06/10/17 10:34 10:34 WBC 12.1 H RBC 5.19 Hgb 15.3 Hct 45.9 MCV 89 MCH 29.4 MCHC 33.2 RDW 15.5 H Plt Count 182 Sodium Potassium Chloride Carbon Dioxide Anion Gap BUN Creatinine 0.80 Est GFR ( Amer) > 60 Est GFR (Non-Af Amer) > 60 Glucose Calcium Urine Color Urine Appearance Urine pH Ur Specific [place] Urine Protein Urine Glucose (UA) Urine Ketones Urine Blood Urine Nitrite Ur Leukocyte Esterase Urine RBC (Auto) 06/08/17 06/08/17 06/08/17 03:25 03:25 09:40 Creatine Kinase 107 90 CK-MB (CK-2) 5.49 H Troponin I 0.103 06/08/17 06/08/17 06/08/17 09:40 15:32 15:32 Creatine Kinase 70 CK-MB (CK-2) 5.33 H 4.48 Troponin I 0.109 0.090 06/08/17 06/08/17 22:44 22:44 Creatine Kinase 71 CK-MB (CK-2) 4.60 H Troponin I 0.058 Impressions: Chest X-Ray 06/07/17 23:46 IMPRESSION: No acute radiographic finding in the chest. Assessment & Plan - Diagnosis (1) COPD exacerbation Is this a current diagnosis for this admission?: Yes (2) Elevated troponin Is this a current diagnosis for this admission?: Yes (3) Essential hypertension Is this a current diagnosis for this admission?: Yes (4) PTSD (post-traumatic stress disorder) Is this a current diagnosis for this admission?: Yes (5) Obstructive sleep apnea syndrome Is this a current diagnosis for this admission?: Yes - Notes Notes: COPD with exacerbation: Patient still with significant but improved wheezing. Continue bronchodilator and steroid therapy. Elevated troponin I: Most likely related to hypoxemia, increased RVEDP, LVEDP etc. Doubt acute coronary syndrome. Patient does have significant cardiac risk factors therefore may benefit from the stress test when patient more stable. Hypertension: Reasonably well controlled. Blood pressure goal in this patient is 135/85 or less. This was discussed with the patient. Currently blood pressure under reasonable control. Better medication for this patient are JAMILA inhibitor/ARB/beta travis etc. discussed side effects of uncontrolled hypertension and also severe hypotension. PTSD: Currently stable. Continue with current management plans. Sleep apnea: Patient advised on compliance with CPAP therapy and has been advised to use his CPAP machine during this hospitalization. 2D echo shows normal LVEF. 2D echo however was technically difficult. No significant valvular abnormalities noted. Dyspnea: Will check a BNP level just to make sure patient does not have any mild diastolic CHF. - Time Time with patient: Greater than 35 minutes - CODE STATUS was discussed, patient remains full code. Surrogate decision-maker unchanged. Multiple medical problems were addressed. More than 50% of the time spent coordinating care, discussing management plans with involved caregivers. Management plans discussed with involved personnels. Medical decision making was of moderate to high complexity, patient's has multiple comorbidities. Medications reviewed and adjusted accordingly: Yes
--- NOTE | 2017-06-10 12:24 | PDOC PROGRESS REPORT ---
Subjective Progress Note for:: 06/10/17 Subjective:: Complains of wheezing. Physical Exam Vital Signs: Temp Pulse Resp BP Pulse Ox 98.0 F 59 L 16 156/90 H 93 06/10/17 11:28 06/10/17 11:28 06/10/17 11:28 06/10/17 11:28 06/10/17 11:28 Intake & Output 06/09/17 06/10/17 06/11/17 06:59 06:59 06:59 Intake Total 1211 1423 Balance 1211 1423 Weight 120.9 kg 122.2 kg General appearance: PRESENT: no acute distress Eye exam: PRESENT: conjunctiva pink. ABSENT: scleral icterus Ear exam: PRESENT: normal external ear exam Mouth exam: PRESENT: moist, tongue midline Neck exam: ABSENT: JVD Respiratory exam: PRESENT: wheezes - Few scattered expiratory wheezes bilaterally.. ABSENT: rales, rhonchi Cardiovascular exam: PRESENT: RRR. ABSENT: diastolic murmur, rubs, systolic murmur GI/Abdominal exam: PRESENT: normal bowel sounds, soft. ABSENT: distended, guarding, mass, organolmegaly, rebound, tenderness Extremities exam: ABSENT: calf tenderness, clubbing, pedal edema Neurological exam: PRESENT: alert, awake, oriented to person, oriented to place , oriented to time, oriented to situation, CN II-XII grossly intact. ABSENT: motor sensory deficit Psychiatric exam: PRESENT: appropriate affect Skin exam: PRESENT: dry, intact, warm. ABSENT: cyanosis, rash Results Laboratory Results: 06/10/17 10:34 06/10/17 10:34 06/09/17 06/10/17 06/10/17 12:30 04:34 04:34 WBC 13.0 H RBC 5.18 Hgb 15.4 Hct 45.8 MCV 89 MCH 29.6 MCHC 33.5 RDW 15.3 H Plt Count 178 Sodium 139.9 Potassium 4.6 Chloride 97 L Carbon Dioxide 35 H Anion Gap 8 BUN 21 H Creatinine 0.77 Est GFR ( Amer) > 60 Est GFR (Non-Af Amer) > 60 Glucose 125 H Calcium 8.9 Urine Color YELLOW Urine Appearance SLIGHTLY-CLOUDY Urine pH 8.0 Ur Specific [place] 1.008 Urine Protein NEGATIVE Urine Glucose (UA) NEGATIVE Urine Ketones NEGATIVE Urine Blood NEGATIVE Urine Nitrite NEGATIVE Ur Leukocyte Esterase NEGATIVE Urine RBC (Auto) 0 06/10/17 06/10/17 10:34 10:34 WBC 12.1 H RBC 5.19 Hgb 15.3 Hct 45.9 MCV 89 MCH 29.4 MCHC 33.2 RDW 15.5 H Plt Count 182 Sodium Potassium Chloride Carbon Dioxide Anion Gap BUN Creatinine 0.80 Est GFR ( Amer) > 60 Est GFR (Non-Af Amer) > 60 Glucose Calcium Urine Color Urine Appearance Urine pH Ur Specific [place] Urine Protein Urine Glucose (UA) Urine Ketones Urine Blood Urine Nitrite Ur Leukocyte Esterase Urine RBC (Auto) 06/08/17 06/08/17 06/08/17 03:25 03:25 09:40 Creatine Kinase 107 90 CK-MB (CK-2) 5.49 H Troponin I 0.103 NT-Pro-B Natriuret Pep 06/08/17 06/08/17 06/08/17 09:40 15:32 15:32 Creatine Kinase 70 CK-MB (CK-2) 5.33 H 4.48 Troponin I 0.109 0.090 NT-Pro-B Natriuret Pep 06/08/17 06/08/17 06/10/17 22:44 22:44 10:34 Creatine Kinase 71 CK-MB (CK-2) 4.60 H Troponin I 0.058 NT-Pro-B Natriuret Pep 195 Impressions: Chest X-Ray 06/07/17 23:46 IMPRESSION: No acute radiographic finding in the chest. Assessment & Plan - Diagnosis (1) COPD exacerbation Is this a current diagnosis for this admission?: Yes Plan: Patient had worsening of his COPD when he was just recently discharged home. Will continue the BiPAP and steroids. Patient will need to have home oxygen arranged through the [facility]. this should be ready tomorrow. (2) Elevated troponin Is this a current diagnosis for this admission?: Yes Plan: Most likely this is secondary to the acute respiratory distress. Cardiology is following. (3) Essential hypertension Is this a current diagnosis for this admission?: Yes Plan: Patient is on felodipine. He takes his home supply for that. We will add on Cozaar today. (4) PTSD (post-traumatic stress disorder) Is this a current diagnosis for this admission?: Yes (5) Pulmonary nodule Is this a current diagnosis for this admission?: Yes Plan: Patient has had a long-standing pulmonary nodule followed by his primary care doctor with no significant change in size over the last several years - Time Time Spent with patient: 25-34 minutes - Inpatient Certification Medical Necessity: Need Close Monitoring Due to Risk of Patient Decompensation - Plan Summary Plan Summary: If he continues to improve we may be able to be discharged home tomorrow if his home oxygen is arranged.
[2017-06-10] MEDS ORDERED: LOSARTAN POTASSIUM 50 MG TABLET PO ONE (13:30)
[2017-06-10] MEDS: LANSOPRAZOLE 30 MG TAB.RAP.DR PO SCH (17:28)
[2017-06-10 20:23] LABS: APPEARANCE,URINE CLEAR; BILIRUBIN,URINE NEGATIVE (NEGATIVE); GLUCOSE, URINE NEGATIVE (NEGATIVE); KETONES,URINE NEGATIVE (NEGATIVE); LEUKOCYTE ESTERASE,URINE NEGATIVE (NEGATIVE); NITRITE,URINE NEGATIVE (NEGATIVE); PROTEIN,URINE NEGATIVE (NEGATIVE); URINE SPECIFIC GRAVITY 1.003; UROBILINOGEN,URINE NEGATIVE mg/dL (<2.0)
[2017-06-10] MEDS: LATANOPROST 0.005% OPH SOLN 2.5 ML OU SCH (21:21)
[2017-06-10] MEDS: MONTELUKAST SODIUM 10 MG TABLET PO SCH (21:21)
[2017-06-10] MEDS: QUETIAPINE FUMARATE 25 MG TABLET PO SCH (21:22)
[2017-06-11] MEDS: IPRATROPIUM/ALBUTEROL 0.5-2.5 MG/3 ML AMPUL NEB SCH ×4 (01:50→20:08)
[2017-06-11] MEDS: HYDRALAZINE HCL INJ/PF 20 MG/1 ML SDV IV PRN (04:11)
[2017-06-11 05:02] LABS: ABSOLUTE MONOCYTES (AUTO) 0.9 10^3/uL (0.1-1.4); ABSOLUTE NEUT (AUTO) 9.6 10^3/uL (1.7-8.2); BASOPHILS % (AUTO) 0.2 % (0-2); HEMATOCRIT 47.1 % (37.9-51.0); HEMOGLOBIN 15.8 g/dL (13.5-17.0); HGB HCT DIFFERENCE 0.3; MEAN CORPUSCULAR HEMOGLOBIN 29.7 pg (27.0-33.4); MEAN CORPUSCULAR HGB CONC 33.6 g/dL (32.0-36.0); MEAN CORPUSCULAR VOLUME 89 fl (80-97); MONOCYTES % (AUTO) 6.9 % (3-13); RED BLOOD COUNT 5.32 10^6/uL (4.35-5.55); RED CELL DISTRIBUTION WIDTH 15.4 % (11.5-14.0); SEGMENTED NEUTROPHILS % (AUTO) 76.9 % (42-78); WHITE BLOOD COUNT 12.5 10^3/uL (4.0-10.5)
[2017-06-11] MEDS: LANSOPRAZOLE 30 MG TAB.RAP.DR PO SCH ×2 (05:14→17:17)
[2017-06-11 05:21] LABS: ANION GAP 7 (5-19); BLOOD UREA NITROGEN 17 mg/dL (7-20); CALCIUM 9.2 mg/dL (8.4-10.2); CARBON DIOXIDE 37 mmol/L (22-30); CHLORIDE 96 mmol/L (98-107); CREATININE RESULT 0.82 mg/dL (0.52-1.25); GLUCOSE 120 mg/dL (75-110); POTASSIUM 4.9 mmol/L (3.6-5.0); SODIUM 140.2 mmol/L (137-145)
[2017-06-11] MEDS: SERTRALINE HCL 50 MG TABLET PO SCH (09:58)
[2017-06-11] MEDS: ASPIRIN 81 MG TABLET, ENT COATED PO SCH (09:59)
[2017-06-11] MEDS: LOSARTAN POTASSIUM 50 MG TABLET PO SCH (09:59)
[2017-06-11] MEDS: PREDNISONE 20 MG TABLET PO SCH ×2 (09:59→17:17)
[2017-06-11] MEDS: ENOXAPARIN SODIUM INJ 40 MG/0.4 ML DISP.SYRIN SUBCUT SCH (10:00)
[2017-06-11] MEDS: LEVOFLOXACIN 750 MG/D5W RTU 750 MG/150 ML RTUPB IV SCH (10:01)
[2017-06-11] MEDS: FLUTICASONE NASAL SPRAY 50 MCG/SPRY 120 SPRAY/16 GM NASL SCH ×2 (10:02→21:18)
[2017-06-11] MEDS: FELODIPINE 10 MG PO SCH (10:02)
[2017-06-11] MEDS ORDERED: FUROSEMIDE INJ/PF 20 MG/2 ML SDV ONE (12:30)
[2017-06-11] MEDS ORDERED: FUROSEMIDE INJ/PF 20 MG/2 ML SDV IV ONE (12:40)
--- NOTE | 2017-06-11 13:50 | DRAGON STRESS TEST REPORT ---
INTRAVENOUS LEXISCAN CARDIOLITE STRESS TEST USING SINGLE PHOTON EMMISION COMPUTERIZED TOMOGRAPHIC. DATE OF PROCEDURE: June 11, 2017 INDICATION : Hypertension CARDIAC RISK FACTORS: Shortness of breath RESTING EKG: Sinus rhythm, left axis deviation, nonprogression of R-wave anterior precordial lead and minor nonspecific ST-T wave changes. STRESS EKG: No significant changes noted with LexiScan bolus REASON FOR TERMINATION: Protocol. PROCEDURE REPORT: Baseline heart rate 63 beats per minute with blood pressure of 142/60. Patient had no significant complaints. Heart rate at 2 minutes post bolus 97 with a blood pressure of 138/63. 3 minutes post bolus heart rate 86 with blood pressure of 126/63. No significant EKG changes were noted. Patient had no significant complaints during the procedure or postprocedure. Patient injected with Aminophyllin 75 mg at 3 minutes or later after Lexiscan bolus. CONCLUSIONS: Normal EKG and hemodynamic response to IV LexiScan. NUCLEAR DATA: At rest the patient was given 15.26 millicuries of technetium 99 sestamibi injected intravenously. As per protocol rest gated SPECT images were obtained. Subsequently the patient was given intravenous LexiScan at a dose of 0.4 mg in 5 mL intravenously, followed by flush with normal saline. Subsequently the stress dose of 46.9 millicuries of technetium 99 sestamibi was injected intravenously. As per protocol stress gated images were obtained. NUCLEAR INTERPRETATION: Both raw and processed data were used for interpretation. Visual, qualitative, computer-generated quantitative data was used. There was good myocardial uptake of technetium compound. Motion artifact and soft tissue attenuations were noted. Increased visceral uptake was noted. No definitive areas of transient perfusion defect noted. No definitive areas of fixed perfusion defect or scars noted. EKG gated imaging showed LV EF at 53 %, rest and stress gated EF similar visually. T. I D. ratio was 1.03. Lung heart ratio noted to be within normal limits 0.30. No significant extracardiac and abnormal radiotracer activities were noted. RV free wall uptake was noted to be WNL. IMPRESSION: Also refer to comments under nuclear interpretation. Also test results needs to be interpreted in the context of pretest probability. 1. There is no definitive scintigraphic evidence of LexiScan induced myocardial ischemia. Decreased uptake noted in the apex in the stress imaging and is felt to be related to apical thinning as there were no corresponding wall motion abnormalities however a mild apical ischemia cannot be entirely ruled out. Clinical correlation is requested. 2. There is no definitive scintigraphic evidence of myocardial infarction/scar. 3. EKG gated imaging shows left ventricular ejection fraction of approximately 53 %. 4. Clinical correlation requested as occasionally single vessel disease or balanced ischemia could be missed. In approximately 10% of the cases Lexiscan may not cause adequate vasodilatory stress. RECOMMENDATIONS: Aggressive risk factor modification, medical therapy. Clinical correlation with echocardiogram derived ejection fraction. Inability to exercise by itself can lead to increased cardiovascular event risks. Consider cardiology consultation and or follow-up if clinically indicated. I AM AVAILABLE FOR CARDIOLOGY CONSULTATION AND FOLLOWUP IF REQUESTED BY PMD Melinda Cunningham M.D., [place] Principal Scientist hat copyist, Board certified in cardiovascular diseases, Nuclear cardiology, Echocardiography Cardiac CT and cardiac MRI Ph. [phone] [facility]
--- NOTE | 2017-06-11 17:14 | PDOC PROGRESS REPORT ---
Subjective Progress Note for:: 06/11/17 Subjective:: Patient seen with nursing at bedside. Patient denies chest pain, shortness of breath, abdominal pain, nausea, vomiting , fevers, chills, diarrhea, constipation, headache, new onset weakness. Patient has just completed his stress test. Physical Exam Vital Signs: Temp Pulse Resp BP Pulse Ox 97.6 F 57 L 20 174/82 H 91 L 06/11/17 03:57 06/11/17 03:57 06/11/17 03:57 06/11/17 03:57 06/11/17 03:57 Intake & Output 06/10/17 06/11/17 06/12/17 06:59 06:59 06:59 Intake Total 1423 938 Output Total 2700 Balance 1423 -1762 Weight 122.2 kg 119.8 kg Exam: General: Awake alert and oriented x3, no acute respiratory distress HEENT: AT/NC, PERRL, EOMI, oropharynx is moist, pink, no scleral icterus, no conjunctival injection Neck: No JVD, trachea midline Chest: Bilateral end expiratory wheezing CV: Regular rate and rhythm, normal S1 and S2, no murmur, rub, or gallop Abdomen: Soft, nontender to palpation, nondistended, active bowel sounds; no rebound, rigidity, or guarding Extremities: No cyanosis, clubbing; +1 edema Neuro: Cranial nerves II through XII are grossly intact without focal deficits; awake alert and oriented x3 Psych: Normal mood and affect Results Laboratory Results: 06/11/17 04:14 06/11/17 04:14 06/10/17 06/10/17 06/10/17 10:34 10:34 20:07 WBC 12.1 H RBC 5.19 Hgb 15.3 Hct 45.9 MCV 89 MCH 29.4 MCHC 33.2 RDW 15.5 H Plt Count 182 Seg Neutrophils % Lymphocytes % Monocytes % Eosinophils % Basophils % Absolute Neutrophils Absolute Lymphocytes Absolute Monocytes Absolute Eosinophils Absolute Basophils Sodium Potassium Chloride Carbon Dioxide Anion Gap BUN Creatinine 0.80 Est GFR ( Amer) > 60 Est GFR (Non-Af Amer) > 60 Glucose Calcium Urine Color STRAW Urine Appearance CLEAR Urine pH 6.0 Ur Specific [place] 1.003 Urine Protein NEGATIVE Urine Glucose (UA) NEGATIVE Urine Ketones NEGATIVE Urine Blood NEGATIVE Urine Nitrite NEGATIVE Ur Leukocyte Esterase NEGATIVE Urine WBC (Auto) 0 06/11/17 06/11/17 04:14 04:14 WBC 12.5 H RBC 5.32 Hgb 15.8 Hct 47.1 MCV 89 MCH 29.7 MCHC 33.6 RDW 15.4 H Plt Count 171 Seg Neutrophils % 76.9 Lymphocytes % 16.0 Monocytes % 6.9 Eosinophils % 0.0 Basophils % 0.2 Absolute Neutrophils 9.6 H Absolute Lymphocytes 2.0 Absolute Monocytes 0.9 Absolute Eosinophils 0.0 Absolute Basophils 0.0 Sodium 140.2 Potassium 4.9 Chloride 96 L Carbon Dioxide 37 H Anion Gap 7 BUN 17 Creatinine 0.82 Est GFR ( Amer) > 60 Est GFR (Non-Af Amer) > 60 Glucose 120 H Calcium 9.2 Urine Color Urine Appearance Urine pH Ur Specific [place] Urine Protein Urine Glucose (UA) Urine Ketones Urine Blood Urine Nitrite Ur Leukocyte Esterase Urine WBC (Auto) 06/08/17 06/08/17 06/08/17 03:25 03:25 09:40 Creatine Kinase 107 90 CK-MB (CK-2) 5.49 H Troponin I 0.103 NT-Pro-B Natriuret Pep 06/08/17 06/08/17 06/08/17 09:40 15:32 15:32 Creatine Kinase 70 CK-MB (CK-2) 5.33 H 4.48 Troponin I 0.109 0.090 NT-Pro-B Natriuret Pep 06/08/17 06/08/17 06/10/17 22:44 22:44 10:34 Creatine Kinase 71 CK-MB (CK-2) 4.60 H Troponin I 0.058 NT-Pro-B Natriuret Pep 195 Impressions: Chest X-Ray 06/07/17 23:46 IMPRESSION: No acute radiographic finding in the chest. Assessment & Plan - Diagnosis (1) Acute on chronic diastolic (congestive) heart failure Is this a current diagnosis for this admission?: Yes Plan: Patient underwent stress test today which was read as negative. Patient underwent echo on 06/08/17 which reveals a normal EF, mild LVH, and grade 2 out of 4 diastolic dysfunction. Minimal pericardial effusion. No beta-travis secondary to acute phase of congestive heart failure. Will add metoprolol as tolerated. Generic Name Dose Route Start Last Admin Trade Name Freq PRN Reason Stop Dose Admin Furosemide 40 mg 06/11/17 18:00 Lasix 40 Mg Tablet PO 07/11/17 17:59 BID RACHEL Losartan Potassium 50 mg 06/11/17 10:00 06/11/17 09:59 Cozaar 50 Mg Tablet PO 07/11/17 09:59 50 mg DAILY RACHEL (2) COPD exacerbation Is this a current diagnosis for this admission?: Yes Plan: Patient is yet to improve. Will increase his prednisone to 40 mg p.o. twice daily today and if this does not improve, will consider switching patient back to Solu-Medrol tomorrow. Currently, I feel that his wheezing is likely secondary to volume overload. Continue nebulized treatments. Oxygen as needed. (3) Elevated troponin Is this a current diagnosis for this admission?: Yes Plan: Patient underwent stress test today which is read as negative. Feel this is likely secondary to hypoxia and strain. (4) Obstructive sleep apnea syndrome Is this a current diagnosis for this admission?: Yes (5) Respiratory acidosis Is this a current diagnosis for this admission?: Yes (6) Essential hypertension Is this a current diagnosis for this admission?: Yes (7) PTSD (post-traumatic stress disorder) Is this a current diagnosis for this admission?: Yes Plan: Continue home medications (8) Severe obesity (BMI 35.0-35.9 with comorbidity) Is this a current diagnosis for this admission?: Yes Plan: Encourage weight loss - Time Time Spent with patient: 25-34 minutes Medications reviewed and adjusted accordingly: Yes Anticipated discharge: Home with Homehealth Within: within 48 hours
[2017-06-11 17:51] LABS: CREATINE KINASE MB 2.79 ng/mL (<4.55)
[2017-06-11 17:55] LABS: TROPONIN I < 0.012 ng/mL
[2017-06-11] MEDS ORDERED: FUROSEMIDE 40 MG TABLET PO SCH (18:00)
--- NOTE | 2017-06-11 20:18 | PDOC PROGRESS REPORT ---
Subjective Progress Note for:: 06/11/17 Subjective:: Patient seems to be doing better with gradual improvement. Pt is denying any chest arm or neck discomfort. Patient denying any PND, orthopnea. Patient denied any sustained palpitations, dizziness, syncope, near syncope. Patient denying any fever chills. Patient denying any other significant discomfort. Patient has noted improvement in wheezing. Patient is maintaining sinus rhythm. Nuclear stress test procedure was explained to the patient in detail. Risks benefits were discussed and informed consent was obtained. Alternatives were discussed. Patient informed that based on risk factors, physical exam, lab data findings and symptoms there is at least intermediate probability of underlying CAD. Nuclear stress test procedure was therefore scheduled. Review of systems: Rest review of systems negative. Medications: Medications have been reviewed. Physical Exam Vital Signs: Temp Pulse Resp BP Pulse Ox 97.9 F 91 20 130/80 H 95 06/11/17 19:43 06/11/17 20:04 06/11/17 19:43 06/11/17 19:43 06/11/17 19:43 Intake & Output 06/10/17 06/11/17 06/12/17 06:59 06:59 06:59 Intake Total 1697 316 9358 Output Total 2700 200 Balance 1423 -1762 1264 Weight 122.2 kg 119.8 kg Exam: GENERAL: well-nourished and in no acute distress. Alert and oriented x3 HEAD: Atraumatic, normocephalic. EYES: Pupils equal round and reactive to light, extraocular movements intact, sclera anicteric, conjunctiva are normal. ENT: TMs normal, nares patent, oropharynx clear without exudates. Moist mucous membranes. No oral ulcerations or bleeding gums noted NECK: supple without lymphadenopathy. Trachea is central. No cervical or axillary lymphadenopathy noted. Carotids are 2+, JVD WNL LUNGS: Respiration seems nonlabored, no significant accessory muscle action noted. Few bilateral wheezing noted. No dullness noted. CHEST: Palpation of the chest wall shows no significant chest wall tenderness. No other significant abnormalities noted. 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 ABDOMEN: Soft, no significant tenderness appreciated, normoactive bowel sounds. No guarding, no rebound. No rigidity noted . No masses appreciated. EXTREMITIES: Pedal pulses are 1-2+, no calf tenderness noted. No clubbing or cyanosis. 1+ pedal edema noted, with some chronic dermatitis changes noted in the lower legs NEUROLOGICAL: Focused neurological exam showed no significant neurologic deficit. Normal speech, no focal weakness appreciated. PSYCH: Normal mood, normal affect. Judgment and insight within normal limits. SKIN: No significant ecchymosis, rash, ulcerations or signs of pruritus noted. MUSCULOSKELETAL EXAM: No significant joint swelling noted. Results Laboratory Results: 06/11/17 04:14 06/11/17 04:14 06/10/17 06/11/17 06/11/17 20:07 04:14 04:14 WBC 12.5 H RBC 5.32 Hgb 15.8 Hct 47.1 MCV 89 MCH 29.7 MCHC 33.6 RDW 15.4 H Plt Count 171 Seg Neutrophils % 76.9 Lymphocytes % 16.0 Monocytes % 6.9 Eosinophils % 0.0 Basophils % 0.2 Absolute Neutrophils 9.6 H Absolute Lymphocytes 2.0 Absolute Monocytes 0.9 Absolute Eosinophils 0.0 Absolute Basophils 0.0 Sodium 140.2 Potassium 4.9 Chloride 96 L Carbon Dioxide 37 H Anion Gap 7 BUN 17 Creatinine 0.82 Est GFR ( Amer) > 60 Est GFR (Non-Af Amer) > 60 Glucose 120 H Calcium 9.2 Urine Color STRAW Urine Appearance CLEAR Urine pH 6.0 Ur Specific [place] 1.003 Urine Protein NEGATIVE Urine Glucose (UA) NEGATIVE Urine Ketones NEGATIVE Urine Blood NEGATIVE Urine Nitrite NEGATIVE Ur Leukocyte Esterase NEGATIVE Urine WBC (Auto) 0 Stool Occult Blood 06/11/17 10:30 WBC RBC Hgb Hct MCV MCH MCHC RDW Plt Count Seg Neutrophils % Lymphocytes % Monocytes % Eosinophils % Basophils % Absolute Neutrophils Absolute Lymphocytes Absolute Monocytes Absolute Eosinophils Absolute Basophils Sodium Potassium Chloride Carbon Dioxide Anion Gap BUN Creatinine Est GFR ( Amer) Est GFR (Non-Af Amer) Glucose Calcium Urine Color Urine Appearance Urine pH Ur Specific [place] Urine Protein Urine Glucose (UA) Urine Ketones Urine Blood Urine Nitrite Ur Leukocyte Esterase Urine WBC (Auto) Stool Occult Blood NEGATIVE 06/08/17 06/08/17 06/08/17 03:25 03:25 09:40 Creatine Kinase 107 90 CK-MB (CK-2) 5.49 H Troponin I 0.103 NT-Pro-B Natriuret Pep 06/08/17 06/08/17 06/08/17 09:40 15:32 15:32 Creatine Kinase 70 CK-MB (CK-2) 5.33 H 4.48 Troponin I 0.109 0.090 NT-Pro-B Natriuret Pep 06/08/17 06/08/17 06/10/17 22:44 22:44 10:34 Creatine Kinase 71 CK-MB (CK-2) 4.60 H Troponin I 0.058 NT-Pro-B Natriuret Pep 195 06/11/17 06/11/17 16:55 16:55 Creatine Kinase 68 CK-MB (CK-2) 2.79 Troponin I < 0.012 NT-Pro-B Natriuret Pep EKG Comments: Shows sinus rhythm without any sustained tachycardia or bradycardia arrhythmias. Impressions: Chest X-Ray 06/07/17 23:46 IMPRESSION: No acute radiographic finding in the chest. Assessment & Plan - Diagnosis (1) COPD exacerbation Is this a current diagnosis for this admission?: Yes (2) Elevated troponin Is this a current diagnosis for this admission?: Yes (3) Essential hypertension Is this a current diagnosis for this admission?: Yes (4) PTSD (post-traumatic stress disorder) Is this a current diagnosis for this admission?: Yes (5) Obstructive sleep apnea syndrome Is this a current diagnosis for this admission?: Yes - Notes Notes: Nuclear stress test showed no definitive areas of ischemia although suspicion of probable mild ischemia in the LV apex versus normal apical thinning. Please see dictated stress test report for details. 2D echo shows relatively well- preserved LVEF. Patient has been advised very aggressive risk factor modification and medical management. Patient offered follow-up. Will follow patient tomorrow. - Time Time with patient: Greater than 35 minutes - Patient was seen multiple times. Total time exceeds 40 minutes. In the morning nuclear stress test procedure, risks benefits, alternatives were discussed. Patient seen during the stress test. Patient also seen after stress test when results were discussed with the patient in detail. Patient's questions were answered. Nuclear stress test results were discussed with the patient. Patient was informed that no definitive evidence of pharmacologic stress-induced ischemia noted. Please see nuclear stress test results which were dictated. There is a borderline area of contention in the LV apex. No definite fixed defects were noted. Patient informed that occasionally significant single vessel disease or balanced ischemia could be missed. However based on the current study results, would recommend aggressive risk factor modification and medical therapy. It may also be worthwhile to consider evaluation or empiric management of other causes of chest pain. Should no other cause be found and if persistent in having chest pain, then cardiac catheterization should be considered. Right now, recommendations are for aggressive risk factor modification and medical management. Medications reviewed and adjusted accordingly: Yes
[2017-06-11] MEDS: MONTELUKAST SODIUM 10 MG TABLET PO SCH (21:20)
[2017-06-11] MEDS: LATANOPROST 0.005% OPH SOLN 2.5 ML OU SCH (21:20)
[2017-06-11] MEDS: QUETIAPINE FUMARATE 25 MG TABLET PO SCH (21:20)
[2017-06-12] MEDS: IPRATROPIUM/ALBUTEROL 0.5-2.5 MG/3 ML AMPUL NEB SCH ×4 (02:06→20:31)
[2017-06-12 05:11] LABS: HEMATOCRIT 45.6 % (37.9-51.0); HEMOGLOBIN 15.2 g/dL (13.5-17.0); MEAN CORPUSCULAR HEMOGLOBIN 29.7 pg (27.0-33.4); MEAN CORPUSCULAR HGB CONC 33.5 g/dL (32.0-36.0); MEAN CORPUSCULAR VOLUME 89 fl (80-97); RED BLOOD COUNT 5.14 10^6/uL (4.35-5.55); RED CELL DISTRIBUTION WIDTH 15.2 % (11.5-14.0); WHITE BLOOD COUNT 12.8 10^3/uL (4.0-10.5)
[2017-06-12] MEDS: LANSOPRAZOLE 30 MG TAB.RAP.DR PO SCH ×2 (05:12→17:33)
[2017-06-12 05:37] LABS: ANION GAP 9 (5-19); BLOOD UREA NITROGEN 20 mg/dL (7-20); CALCIUM 9.2 mg/dL (8.4-10.2); CARBON DIOXIDE 33 mmol/L (22-30); CHLORIDE 98 mmol/L (98-107); CREATININE RESULT 0.84 mg/dL (0.52-1.25); GLUCOSE 134 mg/dL (75-110); POTASSIUM 4.4 mmol/L (3.6-5.0); SODIUM 139.9 mmol/L (137-145)
[2017-06-12] MEDS ORDERED: FUROSEMIDE INJ/PF 20 MG/2 ML SDV IV ONE (09:27)
[2017-06-12] MEDS: SPIRONOLACTONE 25 MG TABLET PO SCH (09:58)
[2017-06-12] MEDS: FLUTICASONE NASAL SPRAY 50 MCG/SPRY 120 SPRAY/16 GM NASL SCH ×2 (09:58→21:38)
[2017-06-12] MEDS: SERTRALINE HCL 50 MG TABLET PO SCH (09:58)
[2017-06-12] MEDS: ENOXAPARIN SODIUM INJ 40 MG/0.4 ML DISP.SYRIN SUBCUT SCH (09:58)
[2017-06-12] MEDS: ASPIRIN 81 MG TABLET, ENT COATED PO SCH (09:58)
[2017-06-12] MEDS: LOSARTAN POTASSIUM 50 MG TABLET PO SCH (09:58)
[2017-06-12] MEDS: FELODIPINE 10 MG PO SCH (09:58)
[2017-06-12] MEDS: LEVOFLOXACIN 750 MG TABLET PO SCH (09:58)
[2017-06-12] MEDS: PREDNISONE 20 MG TABLET PO SCH ×2 (09:58→17:33)
[2017-06-12] MEDS ORDERED: FUROSEMIDE INJ/PF 20 MG/2 ML SDV IV SCH (10:00)
[2017-06-12] MEDS ORDERED: FUROSEMIDE INJ/PF 40 MG/4 ML SDV IV ONE (10:30)
--- NOTE | 2017-06-12 10:36 | PDOC PROGRESS REPORT ---
Subjective Progress Note for:: 06/12/17 Subjective:: Patient seems to be doing better with gradual improvement. Pt is denying any chest arm or neck discomfort. Patient denying any PND, orthopnea. Patient denied any sustained palpitations, dizziness, syncope, near syncope. Patient denying any fever chills. Patient denying any other significant discomfort. Patient has noted improvement in wheezing. Patient is maintaining sinus rhythm. Nuclear stress test results were discussed with the patient. Currently patient relatively asymptomatic as regards any chest pain or angina symptoms. Patient to be treated with aggressive risk factor modification and medical management. Review of systems: Rest review of systems negative. Physical Exam Vital Signs: Temp Pulse Resp BP Pulse Ox 98.0 F 54 L 22 H 143/76 H 95 06/12/17 07:33 06/12/17 08:20 06/12/17 08:20 06/12/17 07:33 06/12/17 08:20 Intake & Output 06/11/17 06/12/17 06/13/17 06:59 06:59 06:59 Intake Total 938 2269 Output Total 2700 1800 Balance -1762 469 Weight 119.8 kg 117 kg Exam: GENERAL: well-nourished and in no acute distress. Alert and oriented x3 HEAD: Atraumatic, normocephalic. EYES: Pupils equal round and reactive to light, extraocular movements intact, sclera anicteric, conjunctiva are normal. ENT: TMs normal, nares patent, oropharynx clear without exudates. Moist mucous membranes. No oral ulcerations or bleeding gums noted NECK: supple without lymphadenopathy. Trachea is central. No cervical or axillary lymphadenopathy noted. Carotids are 2+, JVD WNL LUNGS: Respiration seems nonlabored, no significant accessory muscle action noted. Mild bilateral wheezing noted. No dullness noted. CHEST: Palpation of the chest wall shows no significant chest wall tenderness. No other significant abnormalities noted. 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 ABDOMEN: Soft, no significant tenderness appreciated, normoactive bowel sounds. No guarding, no rebound. No rigidity noted . No masses appreciated. EXTREMITIES: Pedal pulses are 1-2+, no calf tenderness noted. No clubbing or cyanosis.trace to 1+ pedal edema noted. Mild dermatitis changes are noted. NEUROLOGICAL: Focused neurological exam showed no significant neurologic deficit. Normal speech, no focal weakness appreciated. PSYCH: Normal mood, normal affect. Judgment and insight within normal limits. SKIN: No significant ecchymosis, rash, ulcerations or signs of pruritus noted. MUSCULOSKELETAL EXAM: No significant joint swelling noted. Results Laboratory Results: 06/12/17 04:50 06/12/17 04:50 06/11/17 06/12/17 06/12/17 10:30 04:50 04:50 WBC 12.8 H RBC 5.14 Hgb 15.2 Hct 45.6 MCV 89 MCH 29.7 MCHC 33.5 RDW 15.2 H Plt Count 179 Sodium 139.9 Potassium 4.4 Chloride 98 Carbon Dioxide 33 H Anion Gap 9 BUN 20 Creatinine 0.84 Est GFR ( Amer) > 60 Est GFR (Non-Af Amer) > 60 Glucose 134 H Calcium 9.2 Stool Occult Blood NEGATIVE 06/08/17 06/08/17 06/08/17 03:25 03:25 09:40 Creatine Kinase 107 90 CK-MB (CK-2) 5.49 H Troponin I 0.103 NT-Pro-B Natriuret Pep 06/08/17 06/08/17 06/08/17 09:40 15:32 15:32 Creatine Kinase 70 CK-MB (CK-2) 5.33 H 4.48 Troponin I 0.109 0.090 NT-Pro-B Natriuret Pep 06/08/17 06/08/17 06/10/17 22:44 22:44 10:34 Creatine Kinase 71 CK-MB (CK-2) 4.60 H Troponin I 0.058 NT-Pro-B Natriuret Pep 195 06/11/17 06/11/17 16:55 16:55 Creatine Kinase 68 CK-MB (CK-2) 2.79 Troponin I < 0.012 NT-Pro-B Natriuret Pep Impressions: Chest X-Ray 06/07/17 23:46 IMPRESSION: No acute radiographic finding in the chest. Assessment & Plan - Diagnosis (1) COPD exacerbation Is this a current diagnosis for this admission?: Yes (2) Elevated troponin Is this a current diagnosis for this admission?: Yes (3) Essential hypertension Is this a current diagnosis for this admission?: Yes (4) PTSD (post-traumatic stress disorder) Is this a current diagnosis for this admission?: Yes (5) Obstructive sleep apnea syndrome Is this a current diagnosis for this admission?: Yes - Notes Notes: COPD exacerbation: Currently improving slowly. Patient still has some wheezing. Elevated troponin I: Most likely related to COPD exacerbation. Doubt ACS. Nuclear stress test only borderline abnormal. Recommend medical management. Hypertension: Blood pressure under satisfactory control. Continue current management plans. PTSD: Currently stable. DEYANIRA: Stable. Nuclear stress test showed no definitive areas of ischemia although suspicion of probable mild ischemia in the LV apex versus normal apical thinning. Please see dictated stress test report for details. 2D echo shows relatively well- preserved LVEF. Patient has been advised very aggressive risk factor modification and medical management. Patient offered follow-up. Will follow patient tomorrow - Time Time with patient: 15-25 minutes - More than 50% of the time spent coordinating care, discussing management plans with involved caregivers. Management plans discussed with involved personnels. Medical decision making was of moderate to high complexity, patient's has multiple comorbidities. Medications reviewed and adjusted accordingly: Yes
--- NOTE | 2017-06-12 11:12 | EKG REPORT ---
SEVERITY:- ABNORMAL ECG - SINUS RHYTHM PROBABLE INFERIOR INFARCT, AGE INDETERMINATE BORDERLINE R WAVE PROGRESSION, ANTERIOR LEADS LATERAL LEADS ARE ALSO INVOLVED : Confirmed by: Eulalia Orourke MD 12-Jun-2017 11:11:50
[2017-06-12 15:10] LABS: APPEARANCE,URINE CLEAR; BILIRUBIN,URINE NEGATIVE (NEGATIVE); GLUCOSE, URINE NEGATIVE (NEGATIVE); KETONES,URINE NEGATIVE (NEGATIVE); LEUKOCYTE ESTERASE,URINE NEGATIVE (NEGATIVE); NITRITE,URINE NEGATIVE (NEGATIVE); PROTEIN,URINE NEGATIVE (NEGATIVE); URINE SPECIFIC GRAVITY 1.003; UROBILINOGEN,URINE NEGATIVE mg/dL (<2.0)
--- NOTE | 2017-06-12 15:46 | PDOC PROGRESS REPORT ---
Subjective Progress Note for:: 06/12/17 Subjective:: Patient seen earlier today on morning rounds. He reports that his dyspnea on exertion has improved significantly after diuresis. Patient denies chest pain, shortness of breath, abdominal pain, nausea, vomiting , fevers, chills, diarrhea, constipation, headache, new onset weakness. Physical Exam Vital Signs: Temp Pulse Resp BP Pulse Ox 97.7 F 80 18 125/56 L 94 06/12/17 11:27 06/12/17 14:00 06/12/17 13:50 06/12/17 11:27 06/12/17 13:50 Intake & Output 06/11/17 06/12/17 06/13/17 06:59 06:59 06:59 Intake Total 938 2269 177 Output Total 2700 1800 1000 Balance -1762 469 -823 Weight 119.8 kg 117 kg Exam: General: Awake alert and oriented x3, no acute respiratory distress HEENT: AT/NC, PERRL, EOMI, oropharynx is moist, pink, no scleral icterus, no conjunctival injection Neck: No JVD, trachea midline Chest: Improved, scattered bilateral end expiratory wheezing, good air excursion CV: Regular rate and rhythm, normal S1 and S2, no murmur, rub, or gallop Abdomen: Soft, nontender to palpation, nondistended, active bowel sounds; no rebound, rigidity, or guarding Extremities: No cyanosis, clubbing; +1 edema Neuro: Cranial nerves II through XII are grossly intact without focal deficits; awake alert and oriented x3 Psych: Normal mood and affect Results Laboratory Results: 06/12/17 04:50 06/12/17 04:50 06/12/17 06/12/17 06/12/17 04:50 04:50 14:30 WBC 12.8 H RBC 5.14 Hgb 15.2 Hct 45.6 MCV 89 MCH 29.7 MCHC 33.5 RDW 15.2 H Plt Count 179 Sodium 139.9 Potassium 4.4 Chloride 98 Carbon Dioxide 33 H Anion Gap 9 BUN 20 Creatinine 0.84 Est GFR ( Amer) > 60 Est GFR (Non-Af Amer) > 60 Glucose 134 H Calcium 9.2 Urine Color COLORLESS Urine Appearance CLEAR Urine pH 6.0 Ur Specific [place] 1.003 Urine Protein NEGATIVE Urine Glucose (UA) NEGATIVE Urine Ketones NEGATIVE Urine Blood NEGATIVE Urine Nitrite NEGATIVE Ur Leukocyte Esterase NEGATIVE 06/08/17 06/08/17 06/08/17 03:25 03:25 09:40 Creatine Kinase 107 90 CK-MB (CK-2) 5.49 H Troponin I 0.103 NT-Pro-B Natriuret Pep 06/08/17 06/08/17 06/08/17 09:40 15:32 15:32 Creatine Kinase 70 CK-MB (CK-2) 5.33 H 4.48 Troponin I 0.109 0.090 NT-Pro-B Natriuret Pep 06/08/17 06/08/17 06/10/17 22:44 22:44 10:34 Creatine Kinase 71 CK-MB (CK-2) 4.60 H Troponin I 0.058 NT-Pro-B Natriuret Pep 195 06/11/17 06/11/17 16:55 16:55 Creatine Kinase 68 CK-MB (CK-2) 2.79 Troponin I < 0.012 NT-Pro-B Natriuret Pep Impressions: Chest X-Ray 06/07/17 23:46 IMPRESSION: No acute radiographic finding in the chest. Assessment & Plan - Diagnosis (1) Acute on chronic diastolic (congestive) heart failure Is this a current diagnosis for this admission?: Yes Plan: Patient underwent stress test today which was read as negative. Patient underwent echo on 06/08/17 which reveals a normal EF, mild LVH, and grade 2 out of 4 diastolic dysfunction. Minimal pericardial effusion. Generic Name Dose Route Start Last Admin Trade Name Freq PRN Reason Stop Dose Admin Aspirin 81 mg 06/08/17 10:00 06/12/17 09:58 Ecotrin 81 Mg Ec Tablet PO 07/08/17 09:59 81 mg DAILY RACHEL Losartan Potassium 50 mg 06/11/17 10:00 06/12/17 09:58 Cozaar 50 Mg Tablet PO 07/11/17 09:59 50 mg DAILY RACHEL Furosemide 40 mg 06/12/17 18:00 Lasix Inj/Pf 40 Mg/4 Ml Sdv IV 07/12/17 17:59 BID RACHEL Spironolactone 12.5 mg 06/12/17 10:00 06/12/17 09:58 Aldactone 25 Mg Tablet PO 07/12/17 09:59 12.5 mg DAILY RACHEL Generic Name Dose Route Start Last Admin Trade Name Freq PRN Reason Stop Dose Admin Metoprolol Succinate 12.5 mg 06/12/17 22:00 Toprol Xl 25 Mg Tab.Sr PO 07/12/17 21:59 Q12 RACHEL (2) Acute on chronic respiratory failure with hypoxemia Is this a current diagnosis for this admission?: Yes Plan: Continue oxygen as needed to maintain saturation greater than 93% (3) COPD exacerbation Is this a current diagnosis for this admission?: Yes Plan: Patient is yet to improve. On prednisone to 40 mg p.o. twice daily today and if this does not improve, will consider switching patient back to Solu-Medrol tomorrow. Currently, I feel that his wheezing is likely secondary to volume overload. Continue nebulized treatments. Oxygen as needed. (4) Elevated troponin Is this a current diagnosis for this admission?: Yes Plan: Patient underwent stress test which is read as borderline abnormal. Please defer to cardiology note for explanation of this statement. Feel elevated troponin is likely secondary to hypoxia and strain. (5) Obstructive sleep apnea syndrome Is this a current diagnosis for this admission?: Yes Plan: Patient is encouraged to be compliant with BiPAP therapy (6) Respiratory acidosis Is this a current diagnosis for this admission?: Yes (7) Essential hypertension Is this a current diagnosis for this admission?: Yes (8) PTSD (post-traumatic stress disorder) Is this a current diagnosis for this admission?: Yes Plan: Continue home medications (9) Severe obesity (BMI 35.0-35.9 with comorbidity) Is this a current diagnosis for this admission?: Yes Plan: Encourage weight loss - Time Time Spent with patient: 25-34 minutes Medications reviewed and adjusted accordingly: Yes Anticipated discharge: Home with Homehealth Within: within 48 hours
[2017-06-12] MEDS: FUROSEMIDE INJ/PF 40 MG/4 ML SDV IV SCH (17:33)
[2017-06-12] MEDS: QUETIAPINE FUMARATE 25 MG TABLET PO SCH (21:36)
[2017-06-12] MEDS: LATANOPROST 0.005% OPH SOLN 2.5 ML OU SCH (21:36)
[2017-06-12] MEDS: METOPROLOL SUCCINATE 25 MG TAB.SR.24H PO SCH (21:36)
[2017-06-12] MEDS: MONTELUKAST SODIUM 10 MG TABLET PO SCH (21:36)
--- NOTE | 2017-06-13 02:07 | EKG REPORT ---
SEVERITY:- ABNORMAL ECG - SINUS RHYTHM PROBABLE INFERIOR INFARCT, AGE INDETERMINATE BORDERLINE R WAVE PROGRESSION, ANTERIOR LEADS : Confirmed by: Eulalia Orourke MD 13-Jun-2017 02:06:13
[2017-06-13] MEDS: IPRATROPIUM/ALBUTEROL 0.5-2.5 MG/3 ML AMPUL NEB SCH ×2 (02:25→08:01)
[2017-06-13] MEDS: LANSOPRAZOLE 30 MG TAB.RAP.DR PO SCH (05:08)
[2017-06-13] MEDS: ENOXAPARIN SODIUM INJ 40 MG/0.4 ML DISP.SYRIN SUBCUT SCH (09:08)
[2017-06-13] MEDS: PREDNISONE 20 MG TABLET PO SCH (09:08)
[2017-06-13] MEDS: SPIRONOLACTONE 25 MG TABLET PO SCH (09:09)
[2017-06-13] MEDS: LEVOFLOXACIN 750 MG TABLET PO SCH (09:09)
[2017-06-13] MEDS: LOSARTAN POTASSIUM 50 MG TABLET PO SCH (09:09)
[2017-06-13] MEDS: METOPROLOL SUCCINATE 25 MG TAB.SR.24H PO SCH (09:10)
[2017-06-13] MEDS: FUROSEMIDE INJ/PF 40 MG/4 ML SDV IV SCH (09:10)
[2017-06-13] MEDS: ASPIRIN 81 MG TABLET, ENT COATED PO SCH (09:10)
[2017-06-13] MEDS: FLUTICASONE NASAL SPRAY 50 MCG/SPRY 120 SPRAY/16 GM NASL SCH (09:11)
[2017-06-13] MEDS: FELODIPINE 10 MG PO SCH (09:11)
[2017-06-13] MEDS: SERTRALINE HCL 50 MG TABLET PO SCH (09:15)
[2017-06-13 11:07] LABS: APPEARANCE,URINE CLEAR; BILIRUBIN,URINE NEGATIVE (NEGATIVE); GLUCOSE, URINE NEGATIVE (NEGATIVE); KETONES,URINE NEGATIVE (NEGATIVE); LEUKOCYTE ESTERASE,URINE NEGATIVE (NEGATIVE); NITRITE,URINE NEGATIVE (NEGATIVE); PROTEIN,URINE NEGATIVE (NEGATIVE); URINE SPECIFIC GRAVITY 1.005; UROBILINOGEN,URINE NEGATIVE mg/dL (<2.0)
--- NOTE | 2017-06-13 11:58 | PDOC PROGRESS REPORT ---
Subjective Progress Note for:: 06/13/17 Subjective:: Patient seems to be doing better with gradual improvement. Pt is denying any chest arm or neck discomfort. Patient denying any PND, orthopnea. Patient denied any sustained palpitations, dizziness, syncope, near syncope. Patient denying any fever chills. Patient denying any other significant discomfort. Patient has noted improvement in wheezing. Patient is maintaining sinus rhythm. Patient had a EKG performed which shows no acute ST-T wave changes minor nonspecific T-wave changes were noted. Review of systems: Rest review of systems negative. Physical Exam Vital Signs: Temp Pulse Resp BP Pulse Ox 98.7 F 64 20 125/44 L 81 L 06/13/17 11:50 06/13/17 11:50 06/13/17 11:50 06/13/17 11:50 06/13/17 11:50 Intake & Output 06/12/17 06/13/17 06/14/17 06:59 06:59 06:59 Intake Total 2269 559 Output Total 1800 3700 Balance 469 -3141 Weight 117 kg 114.7 kg Exam: GENERAL: well-nourished and in no acute distress. Alert and oriented x3 HEAD: Atraumatic, normocephalic. EYES: Pupils equal round and reactive to light, extraocular movements intact, sclera anicteric, conjunctiva are normal. ENT: TMs normal, nares patent, oropharynx clear without exudates. Moist mucous membranes. No oral ulcerations or bleeding gums noted NECK: supple without lymphadenopathy. Trachea is central. No cervical or axillary lymphadenopathy noted. Carotids are 2+, JVD WNL LUNGS: Respiration seems nonlabored, no significant accessory muscle action noted. Breath sounds clear to auscultation bilaterally and equal noted. No wheezes rales or rhonchi noted. No significant dullness noted on percussion. CHEST: Palpation of the chest wall shows no significant chest wall tenderness. No other significant abnormalities noted. 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 ABDOMEN: Soft, no significant tenderness appreciated, normoactive bowel sounds. No guarding, no rebound. No rigidity noted . No masses appreciated. EXTREMITIES: Pedal pulses are 1-2+, no calf tenderness noted. No clubbing or cyanosis.trace to 1+ pedal edema noted NEUROLOGICAL: Focused neurological exam showed no significant neurologic deficit. Normal speech, no focal weakness appreciated. PSYCH: Normal mood, normal affect. Judgment and insight within normal limits. SKIN: No significant ecchymosis, rash, ulcerations or signs of pruritus noted. MUSCULOSKELETAL EXAM: No significant joint swelling noted. Results Laboratory Results: 06/12/17 04:50 06/12/17 04:50 06/12/17 06/12/17 06/13/17 14:30 16:20 10:50 Magnesium 2.1 Urine Color COLORLESS STRAW Urine Appearance CLEAR CLEAR Urine pH 6.0 6.0 Ur Specific [place] 1.003 1.005 Urine Protein NEGATIVE NEGATIVE Urine Glucose (UA) NEGATIVE NEGATIVE Urine Ketones NEGATIVE NEGATIVE Urine Blood NEGATIVE NEGATIVE Urine Nitrite NEGATIVE NEGATIVE Ur Leukocyte Esterase NEGATIVE NEGATIVE Urine WBC (Auto) 0 06/08/17 06/08/17 06/08/17 03:25 03:25 09:40 Creatine Kinase 107 90 CK-MB (CK-2) 5.49 H Troponin I 0.103 NT-Pro-B Natriuret Pep 06/08/17 06/08/17 06/08/17 09:40 15:32 15:32 Creatine Kinase 70 CK-MB (CK-2) 5.33 H 4.48 Troponin I 0.109 0.090 NT-Pro-B Natriuret Pep 06/08/17 06/08/17 06/10/17 22:44 22:44 10:34 Creatine Kinase 71 CK-MB (CK-2) 4.60 H Troponin I 0.058 NT-Pro-B Natriuret Pep 195 06/11/17 06/11/17 16:55 16:55 Creatine Kinase 68 CK-MB (CK-2) 2.79 Troponin I < 0.012 NT-Pro-B Natriuret Pep Impressions: Chest X-Ray 06/07/17 23:46 IMPRESSION: No acute radiographic finding in the chest. Assessment & Plan - Diagnosis (1) COPD exacerbation Is this a current diagnosis for this admission?: Yes (2) Elevated troponin Is this a current diagnosis for this admission?: Yes (3) Essential hypertension Is this a current diagnosis for this admission?: Yes (4) PTSD (post-traumatic stress disorder) Is this a current diagnosis for this admission?: Yes (5) Obstructive sleep apnea syndrome Is this a current diagnosis for this admission?: Yes - Notes Notes: Got a call from hospitalist to review patient EKG. EKG was reviewed. COPD exacerbation: Currently improving slowly. Patient currently improved to be discharged from cardiac standpoint. Wheezing has also significantly improved. Elevated troponin I: Most likely related to COPD exacerbation. Doubt ACS. Nuclear stress test only borderline abnormal. Recommend medical management. NG reviewed was nonacute. Patient not having any chest discomfort. Hypertension: Blood pressure under satisfactory control. Continue current management plans. PTSD: Currently stable. DEYANIRA: Stable. Discussed that patient would benefit from close follow-up. I will be happy to follow patient in the office. - Time Time with patient: 15-25 minutes - CODE STATUS was discussed, patient remains full code. Multiple medical problems were addressed. More than 50% of the time spent coordinating care, discussing management plans with involved caregivers. Management plans discussed with involved personnels. Medical decision making was of moderate to high complexity, patient's has multiple comorbidities. Medications reviewed and adjusted accordingly: Yes
[2017-06-13 12:15] VITALS: BP 115/55
--- NOTE | 2017-06-14 19:46 | PDOC DISCHARGE SUMMARY ---
General - Admit/Disc Date/PCP Admission Date/Primary Care Provider: 06/08/17 03:17 Discharge Date: 06/13/17 - Discharge Diagnosis (1) Acute on chronic diastolic (congestive) heart failure Is this a current diagnosis for this admission?: Yes (2) Acute on chronic respiratory failure with hypoxemia Is this a current diagnosis for this admission?: Yes (3) COPD exacerbation Is this a current diagnosis for this admission?: Yes (4) Elevated troponin Is this a current diagnosis for this admission?: Yes (5) Obstructive sleep apnea syndrome Is this a current diagnosis for this admission?: Yes (6) Respiratory acidosis Is this a current diagnosis for this admission?: Yes (7) Essential hypertension Is this a current diagnosis for this admission?: Yes (8) PTSD (post-traumatic stress disorder) Is this a current diagnosis for this admission?: Yes (9) Severe obesity (BMI 35.0-35.9 with comorbidity) Is this a current diagnosis for this admission?: Yes - Additional Information Resuscitation Status: Full Code Discharge Diet: Cardiac, Diabetic Discharge Activity: Activity As Tolerated, Balance Activity w/Rest, Weigh Daily Home Medications: Aspirin [Aspirin EC] 81 mg PO DAILY 06/02/17 Cetirizine HCl [Zyrtec 10 mg Tablet] 10 mg PO DAILY 06/02/17 Latanoprost [Xalatan 0.005% Oph Soln 2.5 ml] 1 drop OU QHS 06/02/17 Montelukast Sodium [Singulair 10 mg Tablet] 10 mg PO QHS 06/02/17 Quetiapine Fumarate [Seroquel] 50 mg PO QHS 06/02/17 Sertraline HCl [Zoloft] 50 mg PO DAILY 06/02/17 Budesonide/Formoterol Fumarate [Symbicort HFA 160-4.5 mcg Inhaler 6 gm] 2 puff IH Q12 #1 inhaler 06/06/17 Albuterol Sulfate [Proair HFA] 2 puff IH DAILYP PRN #1 hfa.aer.ad 06/13/17 Ipratropium/Albuterol Sulfate [Duoneb 3 ml Ampul] 3 ml NEB RTQ6 #1 pkg 06/13/17 Levofloxacin [Levaquin 750 mg Tablet] 750 mg PO DAILY #5 tablet 06/13/17 Losartan Potassium [Cozaar 50 mg Tablet] 50 mg PO DAILY #30 tablet 06/13/17 Metoprolol Succinate [Toprol Xl 25 mg Tab.sr] 12.5 mg PO Q12 #30 tab.sr.24h 03/23 Prednisone [Deltasone 20 mg Tablet] 40 mg PO BID #30 tablet 06/13/17 History of Present Illness History of Present Illness: JT CHATMAN is a 67 year old male with a past medical history of steroid- dependent COPD, hypertension, obesity and posttraumatic stress disorder who was discharged within the last 48 hours for COPD exacerbation. He was unable to obtain discharge medications or home oxygen stating the [facility] was unable to coordinate his needs. Patient otherwise admits to a nonproductive cough, EMS finds him with oxygen saturations in the 70s in the emergency room he has a PCO2 of 89 bicarb of 39 he started on BiPAP and referred to the hospitalist for admission. He denies fever chills nausea vomiting palpitations or chest pain. Hospital Course Hospital Course: Patient was readmitted after being unable to get [facility]. Patient was initially placed on BiPAP and improved and was weaned to oxygen by nasal cannula. Patient was found to still have significant COPD exacerbation but additionally was found to also have diastolic dysfunction. Patient was diuresed with much improvement. Patient's troponins elevated on admission. Cardiology was consulted. They felt this was secondary to hypoxia. Patient underwent cardiac stress test which was found to be mildly abnormal. Cardiology was consulted for this reason. Please see their note for full explanation. Patient had no chest pain. Patient was seen by heart failure nurse. He was educated on his medications and diet as well as daily weighing. Home oxygen was set up for patient. Patient was discharged in stable condition. Physical Exam Vital Signs: Temp Pulse Resp BP Pulse Ox 98.7 F 75 20 125/44 L 95 06/13/17 11:50 06/13/17 11:50 06/13/17 11:50 06/13/17 11:50 06/13/17 11:50 Intake & Output 06/13/17 06/14/17 06/15/17 06:59 06:59 06:59 Intake Total 559 Output Total 3700 Balance -3141 Weight 114.7 kg Exam: General: Awake alert and oriented x3, no acute respiratory distress HEENT: AT/NC, PERRL, EOMI, oropharynx is moist, pink, no scleral icterus, no conjunctival injection Neck: No JVD, trachea midline Chest: light end expiratory wheezing, improved CV: Regular rate and rhythm, normal S1 and S2, no murmur, rub, or gallop Abdomen: Soft, nontender to palpation, nondistended, active bowel sounds; no rebound, rigidity, or guarding Extremities: No cyanosis, clubbing; trace edema Neuro: Cranial nerves II through XII are grossly intact without focal deficits; awake alert and oriented x3 Psych: Normal mood and affect Results Laboratory Results: 06/12/17 04:50 06/12/17 04:50 06/08/17 06/08/17 06/08/17 03:25 03:25 09:40 Creatine Kinase 107 90 CK-MB (CK-2) 5.49 H Troponin I 0.103 NT-Pro-B Natriuret Pep 06/08/17 06/08/17 06/08/17 09:40 15:32 15:32 Creatine Kinase 70 CK-MB (CK-2) 5.33 H 4.48 Troponin I 0.109 0.090 NT-Pro-B Natriuret Pep 06/08/17 06/08/17 06/10/17 22:44 22:44 10:34 Creatine Kinase 71 CK-MB (CK-2) 4.60 H Troponin I 0.058 NT-Pro-B Natriuret Pep 195 06/11/17 06/11/17 16:55 16:55 Creatine Kinase 68 CK-MB (CK-2) 2.79 Troponin I < 0.012 NT-Pro-B Natriuret Pep Impressions: Chest X-Ray 06/07/17 23:46 IMPRESSION: No acute radiographic finding in the chest. Qualifiers PATEINT BEING DISCHARGED WITH ANY OF THE FOLLOWING DIAGNOSIS?: Heart Failure HF Pt being discharged on ACEI for LVEF less than 40%?: No Reason(s) for not prescribing ACEI:: Not indicated - On ARB HF Pt being discharged on ARBS for LVEF less than 40%?: Yes HF Pt with Afib discharged with Warfarin?: No Reason(s) for not prescribing Warfarin:: Not indicated - No A. fib HF Pt discharged on evidence-based Beta Taco:: Yes Plan Time Spent: Less than 30 Minutes
--- NOTE | 2017-06-19 10:56 | Physician Advisory Note ---
Physician Advisor ProgressNote .: Pursuant to the plan for Kandy Caraballo, I have reviewed the medical record for this patient. Physician Advisor Statement: Support for Dr. Anderson assessment of presence of Ac Diastolic CHF *Pt had very minimal improvement with good & increasing COPD tx over the first few days in hospital, which supports possiblity of another process going on, such as Ac CHF. New attending assessing him 06/11 was concerned about his poor overall response to that point & ordered IV Lasix x1 & then po bid, and note on 06/12 documents his PARRA improved significantly after diuresis (the very next day after starting this, after minimal response to COPD tx alone). On 06/12, attending increased IV Lasix to 40 bid, adding Aldactone, with resultant even further increased urine output. I/O notes net output of 1762ml on 06/11 & 3141ml on 06/13 on IV Lasix (06/12 #s make me think output wasn't all captured that day). - This much output per day, especially continuing over >1 day, also strongly supports the dx of Ac CHF, especially when associated with quick improvement in sx and no NANCY. Other associated points: Pt had worsening after COPD admission after not getting home O2 & meds Rx'd. ( Could be COPD or CHF or both.) He had diffuse wheezing & Ac Resp Failure (both can be from COPD or CHF or both) . He had 1+ pedal edema documented, which could relate to CHF. ECHO showed grade 2 diastolic dysfunction, which supports potential for Ac diastolic CHF, though it does not mean it must be present. BNP was not excessively high, but BNP relates to systolic CHF (among other things), not diastolic CHF. The medical literature states that normal BNP does NOT rule out acute diastolic CHF, even though some payer denials (and some lesser-informed providers) may assert that it does. CK
== END 2017-06-13 13:06 | disposition home or self-care (01) | DRG 190 ==
LOC: ER 23:43 → UNDOADMIN 06-08 02:08 → EH 06-08 02:08 → 3W 06-08 06:47
PROVIDERS: ADMIT Internal Medicine; ATTEND Internal Medicine
PROC: 5A09457 Assistance with Respiratory Ventilation, 24-96 Consecutive Hours, Continuous Positive Airway Pressure (ICD-10-PCS; principal; 2017-06-09)
DX: J44.1 Chronic obstructive pulmonary disease with (acute) exacerbation (principal); J96.21 Acute and chronic respiratory failure with hypoxia; I50.33 Acute on chronic diastolic (congestive) heart failure; G47.33 Obstructive sleep apnea (adult) (pediatric); F43.10 Post-traumatic stress disorder, unspecified; E66.9 Obesity, unspecified; I10 Essential (primary) hypertension; R91.1 Solitary pulmonary nodule; R74.8 Abnormal levels of other serum enzymes; Z79.52 Long term (current) use of systemic steroids; Z68.36 Body mass index [BMI] 36.0-36.9, adult; Z87.891 Personal history of nicotine dependence; Z82.5 Family history of asthma and other chronic lower respiratory diseases; Z88.2 Allergy status to sulfonamides; Z99.81 Dependence on supplemental oxygen
CPT/HCPCS: 36415; 71010; 78452; 80048; 80053; 80307; 81001; 82272; 82550; 82553; 82565; 82803; 83735; 83880; 84484; 85025; 85027; 85610; 85730; 93005; 93010; 93017; 93306; 94640; 94660; 94667; 94668; 96365; 96375; 99285; A9500; J0280; J0360; J1650; J1940; J1956; J2785; J2930; J3475; J3490; J7512; J7620; Q9969